=== PATIENT | female | born 1965 | race Caucasian/White ===

== ENCOUNTER 2017-12-14 16:47 | Observation (INO) | payer BC ==
--- NOTE | 2017-12-14 17:14 | C.PDOC ---
History Of Present Illness <Neli Egan - Last Filed: 12/14/17 19:00> <Severiano Pickering - Last Filed: 12/14/17 19:38> 52 y/o female present to ED for evaluation of subjective fever and chills that started today. Notes she was started on unknown antibiotics for UTI on 11/19 but had changed to Cipro on 11/29 because UTI symptoms did not resolve. Notes she also has nausea. Otherwise, denies vomiting, or diarrhea. (Neli Egan) History Per: Patient History/Exam Limitations: no limitations Onset/Duration Of Symptoms: Days Current Symptoms Are (Timing): Still Present Sick Contacts (Context): None Associated Symptoms: Fever, Chills, Nausea. denies: Vomiting, Diarrhea Ear Symptoms: Bilateral: None Recent travel outside of the [place]: No Additional History Per: Patient <Neli Egan - Last Filed: 12/14/17 19:00> <Severiano Pickering - Last Filed: 12/14/17 19:38> Time Seen by Provider: 12/14/17 17:01 Chief Complaint (Nursing): Fever Past Medical History Reviewed: Historical Data, Nursing Documentation, Vital Signs - Medical History PMH: Asthma, COPD Family History: States: Unknown Family Hx - Social History Hx Tobacco Use: No Hx Alcohol Use: No Hx Substance Use: No - Immunization History Hx Tetanus Toxoid Vaccination: No Hx Influenza Vaccination: No Hx Pneumococcal Vaccination: No <Neli Egan - Last Filed: 12/14/17 19:00> Vital Signs: Last Vital Signs Temp 101.9 F H 12/14/17 18:39 Pulse 82 12/14/17 19:01 Resp 16 12/14/17 19:01 BP 90/40 L 12/14/17 19:01 Pulse Ox 98 12/14/17 19:01 Review Of Systems Except As Marked, All Systems Reviewed And Found Negative. Constitutional: Positive for: Fever, Chills Cardiovascular: Negative for: Chest Pain Respiratory: Negative for: Shortness of Breath Gastrointestinal: Positive for: Nausea. Negative for: Vomiting, Abdominal Pain , Diarrhea, Constipation <Neli Egan - Last Filed: 12/14/17 19:00> Physical Exam - Physical Exam Appears: Non-toxic, No Acute Distress Skin: Normal Color, Warm, Dry Head: Atraumatic, Normacephalic Eye(s): bilateral: Normal Inspection Oral Mucosa: Moist Neck: Normal ROM, Supple Chest: Symmetrical Cardiovascular: Rhythm Regular, No Murmur Respiratory: Normal Breath Sounds, No Rales, No Rhonchi, No Wheezing Gastrointestinal/Abdominal: Soft, No Tenderness, No Guarding, No Rebound Back: No CVA Tenderness Extremity: Normal ROM, No Deformity Neurological/Psych: Oriented x3, Normal Speech <Neli Egan - Last Filed: 12/14/17 19:00> ED Course And Treatment - Laboratory Results Result Diagrams: 12/14/17 17:53 12/14/17 18:25 O2 Sat by Pulse Oximetry: 98 (RA) Pulse Ox Interpretation: Normal <Neli Egan - Last Filed: 12/14/17 19:00> - Laboratory Results Result Diagrams: 12/14/17 17:53 12/14/17 18:25 ECG: Interpreted By Me, Viewed By Me ECG Rhythm: Sinus Rhythm ECG Interpretation: Normal, No Acute Changes Interpretation Of ECG: NSR, normal tracings. Rate From EC <Severiano Pickering - Last Filed: 12/14/17 19:38> Progress - Data Reviewed Data Reviewed: Lab, Diagnostic imaging <Neli Egan - Last Filed: 12/14/17 19:00> <Severiano Pickering - Last Filed: 12/14/17 19:38> - Re-Evaluation Re-evaluation Note: 12/14/17 18:31 SBP 90. IVF IN PROGRESS. NO UO. LAB FINDINGS CONCERNING FOR BACTEREMIA. 12/14/17 19:00 D/W DR Akil LEIVA NUTRITION TEACHER WILL ADMIT. STATES TO ADMIT UNDER DR BOJORQUEZ (Neli Egan) Medical Decision Making <Neli Egan - Last Filed: 12/14/17 19:00> <Severiano Pickering - Last Filed: 12/14/17 19:38> Medical Decision Making: Plan: Blood work Urinalysis EKG/CXR Influenza AB Tylenol IV fluids (Neli Egan) Disposition Counseled Patient/Family Regarding: Studies Performed, Diagnosis - Disposition Disposition Time: 18:54 <Neli Egan - Last Filed: 12/14/17 19:00> <Severiano Pickering - Last Filed: 12/14/17 19:38> - Disposition Disposition: HOSPITALIZED Condition: SERIOUS - Clinical Impression Clinical Impression: Fever, Abnormal liver function test - Scribe Statement The provider has reviewed the documentation as recorded by the Scribe <Neli Egan - Last Filed: 12/14/17 19:00> <Severiano Pickering - Last Filed: 12/14/17 19:38> - Scribe Statement KP All medical record entries made by the Scribe were at my direction and personally dictated by me. I have reviewed the chart and agree that the record accurately reflects my personal performance of the history, physical exam, medical decision making, and the department course for this patient. I have also personally directed, reviewed, and agree with the discharge instructions and disposition. (Neli Egan)
[2017-12-14] MEDS ORDERED: Sodium Chloride 0.9% 2,000 ML ONE (17:28)
--- NOTE | 2017-12-14 17:28 | RAD ---
Date of service: 12/14/2017 HISTORY: fever COMPARISON: No prior. FINDINGS: LUNGS: Prominent lung markings in the mid and lower lungs. Correlate clinically for bronchitis PLEURA: No significant pleural effusion identified, no pneumothorax apparent. CARDIOVASCULAR: Normal. OSSEOUS STRUCTURES: No significant abnormalities. VISUALIZED UPPER ABDOMEN: Normal. OTHER FINDINGS: None. IMPRESSION: Prominent lung markings at the mid and lower lung. Correlate clinically for bronchitis.
[2017-12-14 17:49] LABS: VENOUS BLOOD GAS BASE EXCESS -6.8 mmol/L (0.0-2.0); VENOUS BLOOD GAS PCO2 31 mmHg (40-60); VENOUS BLOOD GAS PO2 35 mm/Hg (30-55); VENOUS BLOOD PH 7.36 (7.32-7.43)
[2017-12-14 17:50] LABS: SQUAMOUS EPITHIAL 1 /hpf (0-5); URINE BILIRUBIN NEGATIVE (NEGATIVE); URINE BLOOD NEGATIVE (NEGATIVE); URINE CLARITY Clear (Clear); URINE COLOR Yellow (YELLOW); URINE GLUCOSE (UA) NORMAL (Normal); URINE LEUKOCYTE ESTERASE TRACE Leu/uL (Negative); URINE PROTEIN NEGATIVE (NEGATIVE)
[2017-12-14] MEDS ORDERED: Potassium Chloride 20 mEq/15 ml LIQ UD PO STA (17:54)
[2017-12-14 17:57] LABS: BASO % 0.1 % (0.0-2.0); EOS # 0.1 K/uL (0.0-0.7); EOS % 0.6 % (0.0-4.0); HEMOGLOBIN 11.7 g/dL (11.0-16.0); LYMPH # 0.3 K/uL (1.0-4.3); LYMPH % 2.3 % (20.0-40.0); MEAN CELL VOLUME 87.2 fL (81.0-99.0); MEAN CORPUSCULAR HEMOGLOBIN 28.8 pg (27.0-31.0); MEAN CORPUSCULAR HGB CONC 33.1 g/dL (33.0-37.0); MEAN PLATELET VOLUME 8.7 fL (7.2-11.7); MONO # 0.2 K/uL (0.0-0.8); MONO % 1.6 % (0.0-10.0); NEUT # 12.9 K/uL (1.8-7.0); NEUT % 95.4 % (50.0-75.0); PLATELET COUNT 214 K/uL (130-400); RBC 4.07 Mil/uL (3.80-5.20); RED CELL DISTRIBUTION WIDTH 14.5 % (11.5-14.5); WHITE BLOOD COUNT 13.5 K/uL (4.8-10.8)
[2017-12-14] MEDS ORDERED: Potassium Chloride 20 mEq/15 ml LIQ UD ONE (18:06)
[2017-12-14 18:16] LABS: BANDS 1 % (0-2); LYMPHOCYTE 4 % (20-40); MONOCYTE 4 % (0-10); NEUTROPHIL 91 % (50-75); TOTAL CELLS COUNTED 100
[2017-12-14 18:17] LABS: PLATELET ESTIMATE NORMAL (NORMAL)
[2017-12-14 18:18] LABS: HYPOCHROMIC SLIGHT
[2017-12-14] MEDS ORDERED: Vancomycin 1 gm/NS 200 ml 1 GM/200 ML BAG IVPB STA (18:29)
[2017-12-14] MEDS ORDERED: Piperacill/Tazo 3.375gm in Dex 3.375 GM/50 ML BAG IVPB STA (18:29)
[2017-12-14 18:40] LABS: ALB/GLOB RATIO 1.2 (1.0-2.1); ALBUMIN 3.4 g/dL (3.5-5.0); ALT/SGPT 289 U/L (9-52); AST/SGOT 515 U/L (14-36); BLOOD UREA NITROGEN 14 mg/dL (7-17); CALCIUM 8.6 mg/dl (8.6-10.4); GFR AFRICAN-AMERICAN > 60; GFR NON-AFRICAN AMERICAN > 60
[2017-12-14] MEDS ORDERED: Piperacillin/Tazobact 3.375 gm 100 ML IVPB ONE (18:53)
[2017-12-14 20:04] LABS: INR 1.2; PROTHROMBIN TIME 13.6 SECONDS (9.7-12.2)
--- NOTE | 2017-12-14 21:40 | CP.PCM.HP ---
<Nneka Terrazas E - Last Filed: 12/14/17 22:51> History of Present Illness - History of Present Illness History of Present Illness: CC: Fever and chills HPI: Patient is 52 year old menopausal female with history of opioid abuse, who presents to the ED via ambulance with complaint of fever and chills. Patient states that she felt sudden fever and chills after while painting her deck and sitting under the hair dry. Patient states that she was placed on Cipro BID on November 29 for UTI after she was placed on an unknown antibiotics on November 19, which provided no relief. Prior to being placed on the Cipro, patient had symptoms of dysuria and increased urinary frequency for 2 days without associated symptoms of fever and chills. Currently, patient denies any symptoms of dysuria, urinary frequency, flank pain, abdominal/pelvic pain, hematuria, headache, chest pain, palpitations, SOB, cough, running nose. In addition, patient is enrolled in an outpatient nacrotics program, [facility], , please call to confirm daily dose of methadone 50mg PO daily. Code status: Full code\ Person of contact: SonJerald, PMD: Dr. Jacob (Located in [place]) PMHx: Childhood asthma PSHx: Gastric Bypass ( 2 years ago) FHx: Denies Medication: Methadone 50mg PO daily, symbicort prn, Cipro 500mg PO BID ( Started November 29) Allergies: Denies Social Hx: Lives with familym works at [employer]. Admits to tobacco use (> 20years, 4-5 cigarettes per day, quit 3 weeks ago), Opioid abuse (pills), and denies ETOH use. Present on Admission - Present on Admission Any Indicators Present on Admission: No Review of Systems - Constitutional Constitutional: Chills, Fever. absent: Excessive Sweating, Headache, Night Sweats, Weakness - EENT Eyes: absent: Blurred Vision, Change in Vision Nose/Mouth/Throat: absent: Nasal Congestion, Nasal Discharge, Sore Throat - Cardiovascular Cardiovascular: absent: Chest Pain, Diaphoresis, Dyspnea, Lightheadedness, Palpitations - Respiratory Respiratory: absent: Cough, Dyspnea, Dyspnea on Exertion, Wheezing - Gastrointestinal Gastrointestinal: absent: Abdominal Pain, Diarrhea, Hematochezia, Nausea, Vomiting - Genitourinary Genitourinary: absent: Dysuria, Flank Pain, Hematuria, Pyuria, Urinary Frequency - Reproductive: Female Reproductive:Female: Menopausal - Musculoskeletal Musculoskeletal: absent: Back Pain, Numbness, Tingling - Neurological Neurological: absent: Dizziness, Headaches, Tingling, Weakness - Psychiatric Psychiatric: absent: Anxiety - Endocrine Endocrine: absent: Fatigue, Palpitations Past Patient History - Past Social History Smoking Status: Light Smoker < 10 Cigarettes Daily - PULMONARY Hx Asthma: Yes Hx Chronic Obstructive Pulmonary Disease (COPD): Yes - PSYCHIATRIC Hx Substance Use: No Meds Allergies/Adverse Reactions: Allergies Allergy/AdvReac Type Severity Reaction Status Date / Time No Known Allergies Allergy Verified 12/14/17 16:58 Physical Exam - Constitutional Appears: No Acute Distress - Head Exam Head Exam: ATRAUMATIC, NORMAL INSPECTION - Eye Exam Eye Exam: EOMI, Normal appearance - ENT Exam ENT Exam: Mucous Membranes Moist - Respiratory Exam Respiratory Exam: Clear to Auscultation Bilateral, Wheezes, NORMAL BREATHING PATTERN. absent: Decreased Breath Sounds, Rhonchi - Cardiovascular Exam Cardiovascular Exam: REGULAR RHYTHM, +S1, +S2. absent: Diastolic murmur, Systolic Murmur - GI/Abdominal Exam GI & Abdominal Exam: Normal Bowel Sounds, Soft, Tenderness Additional comments: Epigastric tenderness Mild RUQ pain - Extremities Exam Extremities exam: Positive for: normal inspection. Negative for: calf tenderness, pedal edema - Back Exam Back exam: NORMAL INSPECTION. absent: CVA tenderness (L), CVA tenderness (R) - Neurological Exam Neurological exam: Alert, CN II-XII Intact, Oriented x3 - Psychiatric Exam Psychiatric exam: Normal Affect, Normal Mood - Skin Skin Exam: Normal Color Results - Vital Signs Recent Vital Signs: Last Vital Signs Temp 100.0 F H 12/14/17 21:00 Pulse 84 12/14/17 21:00 Resp 16 12/14/17 21:00 BP 94/60 L 12/14/17 21:00 Pulse Ox 95 12/14/17 21:00 - Labs Result Diagrams: 12/14/17 17:53 12/14/17 18:25 Labs: Laboratory Results - last 24 hr 12/14/17 12/14/17 12/14/17 17:22 17:45 17:53 WBC 13.5 H RBC 4.07 Hgb 11.7 Hct 35.5 MCV 87.2 MCH 28.8 MCHC 33.1 RDW 14.5 Plt Count 214 MPV 8.7 Neut % (Auto) 95.4 H Lymph % (Auto) 2.3 L [place] % (Auto) 1.6 Eos % (Auto) 0.6 Baso % (Auto) 0.1 Neut # (Auto) 12.9 H Lymph # (Auto) 0.3 L [place] # (Auto) 0.2 Eos # (Auto) 0.1 Baso # (Auto) 0.0 Neutrophils % (Manual) 91 H Band Neutrophils % 1 Lymphocytes % (Manual) 4 L Monocytes % (Manual) 4 Platelet Estimate Normal Hypochromasia (manual) Slight PT INR APTT pO2 35 VBG pH 7.36 VBG pCO2 31 L VBG HCO3 18.7 VBG Total CO2 18.5 L VBG O2 Sat (Calc) 76.6 H VBG Base Excess -6.8 L VBG Potassium 2.5 L* Sodium 144.0 Chloride 113.0 H Glucose 78 Lactate 1.9 Crit Value Called To Neli galvan md Crit Value Called By Gerald traylor horse riding coach or instructor Crit Value Read Back Y Blood Gas Notified Time 1756 Potassium Carbon Dioxide Anion Gap BUN Creatinine Est GFR ( Amer) Est GFR (Non-Af Amer) Random Glucose Calcium Phosphorus Magnesium Total Bilirubin AST ALT Alkaline Phosphatase Total Protein Albumin Globulin Albumin/Globulin Ratio Venous Blood Potassium 2.5 L* Urine Color Yellow Urine Clarity Clear Urine pH 6.0 Ur Specific [place] 1.014 Urine Protein Negative Urine Glucose (UA) Normal Urine Ketones Negative Urine Blood Negative Urine Nitrate Negative Urine Bilirubin Negative Urine Urobilinogen 4.0 H Ur Leukocyte Esterase Trace Urine WBC (Auto) < 1 Urine RBC (Auto) 2 Ur Squamous Epith Cells 1 Influenza Typ A,B (EIA) 12/14/17 12/14/17 12/14/17 18:00 18:25 18:57 WBC RBC Hgb Hct MCV MCH MCHC RDW Plt Count MPV Neut % (Auto) Lymph % (Auto) [place] % (Auto) Eos % (Auto) Baso % (Auto) Neut # (Auto) Lymph # (Auto) [place] # (Auto) Eos # (Auto) Baso # (Auto) Neutrophils % (Manual) Band Neutrophils % Lymphocytes % (Manual) Monocytes % (Manual) Platelet Estimate Hypochromasia (manual) PT INR APTT pO2 VBG pH VBG pCO2 VBG HCO3 VBG Total CO2 VBG O2 Sat (Calc) VBG Base Excess VBG Potassium Sodium 137 Chloride 102 Glucose Lactate Crit Value Called To Crit Value Called By Crit Value Read Back Blood Gas Notified Time Potassium 4.3 Carbon Dioxide 24 Anion Gap 15 BUN 14 Creatinine 0.6 L Est GFR ( Amer) > 60 Est GFR (Non-Af Amer) > 60 Random Glucose 107 H Calcium 8.6 Phosphorus 2.7 Magnesium 1.2 L Total Bilirubin 1.8 H AST 515 H ALT 289 H Alkaline Phosphatase 508 H Total Protein 6.2 L Albumin 3.4 L Globulin 2.8 Albumin/Globulin Ratio 1.2 Venous Blood Potassium Urine Color Urine Clarity Urine pH Ur Specific [place] Urine Protein Urine Glucose (UA) Urine Ketones Urine Blood Urine Nitrate Urine Bilirubin Urine Urobilinogen Ur Leukocyte Esterase Urine WBC (Auto) Urine RBC (Auto) Ur Squamous Epith Cells Influenza Typ A,B (EIA) Negative for flu a/b 12/14/17 19:49 WBC RBC Hgb Hct MCV MCH MCHC RDW Plt Count MPV Neut % (Auto) Lymph % (Auto) [place] % (Auto) Eos % (Auto) Baso % (Auto) Neut # (Auto) Lymph # (Auto) [place] # (Auto) Eos # (Auto) Baso # (Auto) Neutrophils % (Manual) Band Neutrophils % Lymphocytes % (Manual) Monocytes % (Manual) Platelet Estimate Hypochromasia (manual) PT 13.6 H INR 1.2 APTT 34 pO2 VBG pH VBG pCO2 VBG HCO3 VBG Total CO2 VBG O2 Sat (Calc) VBG Base Excess VBG Potassium Sodium Chloride Glucose Lactate Crit Value Called To Crit Value Called By Crit Value Read Back Blood Gas Notified Time Potassium Carbon Dioxide Anion Gap BUN Creatinine Est GFR ( Amer) Est GFR (Non-Af Amer) Random Glucose Calcium Phosphorus Magnesium Total Bilirubin AST ALT Alkaline Phosphatase Total Protein Albumin Globulin Albumin/Globulin Ratio Venous Blood Potassium Urine Color Urine Clarity Urine pH Ur Specific [place] Urine Protein Urine Glucose (UA) Urine Ketones Urine Blood Urine Nitrate Urine Bilirubin Urine Urobilinogen Ur Leukocyte Esterase Urine WBC (Auto) Urine RBC (Auto) Ur Squamous Epith Cells Influenza Typ A,B (EIA) Assessment & Plan (1) SIRS (systemic inflammatory response syndrome) Assessment and Plan: Tmax: 102 Chest X-ray: Prominent lung markings at the mid and lower lung. Correlate clinically for bronchitis UA: Negative F/u BC and UC Medication: * NS @ 100mls/hr * Rocephin 1gm IV daily * Motrin 400mg PO Q6H PRN for fever > 100.4 * Received Zosyn 3.375gm IV and Vanco 1gm IV once Status: Acute (2) Elevated WBCs Assessment and Plan: Tmax: 102 Chest X-ray: Prominent lung markings at the mid and lower lung. Correlate clinically for bronchitis UA: Negative F/u BC and UC Medication: * NS @ 100mls/hr * Rocephin 1gm IV daily Status: Acute (3) Elevated liver function tests Assessment and Plan: F/u hepatitis panel F/u CT abdomen IV and PO contrast Avoid hepatoxic drugs Status: Acute (4) Hypomagnesemia Assessment and Plan: Repleted with Mg Sulfate IV X2 F/u with am labs Status: Acute (5) Opioid abuse Assessment and Plan: Methadone 50mg PO daily ( Please confirm with outpatient NA programs, [facility], Status: Acute (6) Wheezing on exhalation Assessment and Plan: Duonebs 3ml INH RQ6H Status: Acute (7) Prophylactic measure Assessment and Plan: GI: Pepcid 20mg PO daily DVT: SCDs All management and plans discussed with Dr. Bravo Status: Acute <Jani Bravo P - Last Filed: 12/15/17 07:20> Results - Vital Signs Recent Vital Signs: Last Vital Signs Temp 98.1 F 12/15/17 00:00 Pulse 60 12/15/17 00:00 Resp 20 12/15/17 00:00 BP 98/59 L 12/15/17 00:00 Pulse Ox 97 12/15/17 00:00 - Labs Result Diagrams: 12/14/17 17:53 12/15/17 06:25 Labs: Laboratory Results - last 24 hr 12/14/17 12/14/17 12/14/17 17:22 17:45 17:53 WBC 13.5 H RBC 4.07 Hgb 11.7 Hct 35.5 MCV 87.2 MCH 28.8 MCHC 33.1 RDW 14.5 Plt Count 214 MPV 8.7 Neut % (Auto) 95.4 H Lymph % (Auto) 2.3 L [place] % (Auto) 1.6 Eos % (Auto) 0.6 Baso % (Auto) 0.1 Neut # (Auto) 12.9 H Lymph # (Auto) 0.3 L [place] # (Auto) 0.2 Eos # (Auto) 0.1 Baso # (Auto) 0.0 Neutrophils % (Manual) 91 H Band Neutrophils % 1 Lymphocytes % (Manual) 4 L Monocytes % (Manual) 4 Platelet Estimate Normal Hypochromasia (manual) Slight PT INR APTT pO2 35 VBG pH 7.36 VBG pCO2 31 L VBG HCO3 18.7 VBG Total CO2 18.5 L VBG O2 Sat (Calc) 76.6 H VBG Base Excess -6.8 L VBG Potassium 2.5 L* Sodium 144.0 Chloride 113.0 H Glucose 78 Lactate 1.9 Crit Value Called To Neli galvan md Crit Value Called By Gerald traylor horse riding coach or instructor Crit Value Read Back Y Blood Gas Notified Time 1751 Potassium Carbon Dioxide Anion Gap BUN Creatinine Est GFR ( Amer) Est GFR (Non-Af Amer) Random Glucose Calcium Phosphorus Magnesium Total Bilirubin AST ALT Alkaline Phosphatase Total Protein Albumin Globulin Albumin/Globulin Ratio Venous Blood Potassium 2.5 L* Urine Color Yellow Urine Clarity Clear Urine pH 6.0 Ur Specific [place] 1.014 Urine Protein Negative Urine Glucose (UA) Normal Urine Ketones Negative Urine Blood Negative Urine Nitrate Negative Urine Bilirubin Negative Urine Urobilinogen 4.0 H Ur Leukocyte Esterase Trace Urine WBC (Auto) < 1 Urine RBC (Auto) 2 Ur Squamous Epith Cells 1 Influenza Typ A,B (EIA) 12/14/17 12/14/17 12/14/17 18:00 18:25 18:57 WBC RBC Hgb Hct MCV MCH MCHC RDW Plt Count MPV Neut % (Auto) Lymph % (Auto) [place] % (Auto) Eos % (Auto) Baso % (Auto) Neut # (Auto) Lymph # (Auto) [place] # (Auto) Eos # (Auto) Baso # (Auto) Neutrophils % (Manual) Band Neutrophils % Lymphocytes % (Manual) Monocytes % (Manual) Platelet Estimate Hypochromasia (manual) PT INR APTT pO2 VBG pH VBG pCO2 VBG HCO3 VBG Total CO2 VBG O2 Sat (Calc) VBG Base Excess VBG Potassium Sodium 137 Chloride 102 Glucose Lactate Crit Value Called To Crit Value Called By Crit Value Read Back Blood Gas Notified Time Potassium 4.3 Carbon Dioxide 24 Anion Gap 15 BUN 14 Creatinine 0.6 L Est GFR ( Amer) > 60 Est GFR (Non-Af Amer) > 60 Random Glucose 107 H Calcium 8.6 Phosphorus 2.7 Magnesium 1.2 L Total Bilirubin 1.8 H AST 515 H ALT 289 H Alkaline Phosphatase 508 H Total Protein 6.2 L Albumin 3.4 L Globulin 2.8 Albumin/Globulin Ratio 1.2 Venous Blood Potassium Urine Color Urine Clarity Urine pH Ur Specific [place] Urine Protein Urine Glucose (UA) Urine Ketones Urine Blood Urine Nitrate Urine Bilirubin Urine Urobilinogen Ur Leukocyte Esterase Urine WBC (Auto) Urine RBC (Auto) Ur Squamous Epith Cells Influenza Typ A,B (EIA) Negative for flu a/b 12/14/17 12/15/17 19:49 06:25 WBC RBC Hgb Hct MCV MCH MCHC RDW Plt Count MPV Neut % (Auto) Lymph % (Auto) [place] % (Auto) Eos % (Auto) Baso % (Auto) Neut # (Auto) Lymph # (Auto) [place] # (Auto) Eos # (Auto) Baso # (Auto) Neutrophils % (Manual) Band Neutrophils % Lymphocytes % (Manual) Monocytes % (Manual) Platelet Estimate Hypochromasia (manual) PT 13.6 H INR 1.2 APTT 34 pO2 VBG pH VBG pCO2 VBG HCO3 VBG Total CO2 VBG O2 Sat (Calc) VBG Base Excess VBG Potassium Sodium 140 Chloride 109 H Glucose Lactate Crit Value Called To Crit Value Called By Crit Value Read Back Blood Gas Notified Time Potassium 4.4 Carbon Dioxide 24 Anion Gap 12 BUN 11 Creatinine 0.6 L Est GFR ( Amer) > 60 Est GFR (Non-Af Amer) > 60 Random Glucose 98 Calcium 8.4 L Phosphorus 3.6 Magnesium 2.2 Total Bilirubin 3.5 H AST 238 H D ALT 221 H D Alkaline Phosphatase 371 H D Total Protein 5.4 L Albumin 2.9 L Globulin 2.5 Albumin/Globulin Ratio 1.2 Venous Blood Potassium Urine Color Urine Clarity Urine pH Ur Specific [place] Urine Protein Urine Glucose (UA) Urine Ketones Urine Blood Urine Nitrate Urine Bilirubin Urine Urobilinogen Ur Leukocyte Esterase Urine WBC (Auto) Urine RBC (Auto) Ur Squamous Epith Cells Influenza Typ A,B (EIA) Attending/Attestation - Attestation I have personally seen and examined this patient.: Yes I have fully participated in the care of the patient.: Yes I have reviewed all pertinent clinical information: Yes Notes (Text): 12/15/17 07:16 Transaminitis, with fever, recently being on cipro could have caused transaminitis and fever could have been co incident, other w/u negative, h/o copd, asthma, recently stopped smoking 3wks back, on maintainence methadone 50mg daily from [facility], which will be confirmed, imaging ordered for the chest/abd/pelvis, hepatitis panel. H/o gastri bypass and tummy tuck.
[2017-12-14] MEDS: Magnesium Sulfate 1 gm in D5W 1 GM/100 ML BAG IVPB SCH ×2 (22:16→23:00)
[2017-12-14] MEDS: Sodium Chloride 0.9% 1,000 ML IV SCH (22:17)
[2017-12-15 00:18] VITALS: RESP 20
[2017-12-15] MEDS: Albuterol-Ipratrop 3 mg / 0.5 (3 ml) UD INH SCH ×3 (01:05→14:00)
[2017-12-15 06:54] LABS: ALB/GLOB RATIO 1.2 (1.0-2.1); ALBUMIN 2.9 g/dL (3.5-5.0); ALT/SGPT 221 U/L (9-52); AST/SGOT 238 U/L (14-36); BLOOD UREA NITROGEN 11 mg/dL (7-17); CALCIUM 8.4 mg/dl (8.6-10.4); GFR AFRICAN-AMERICAN > 60; GFR NON-AFRICAN AMERICAN > 60
[2017-12-15 07:26] LABS: BASO % 0.2 % (0.0-2.0); EOS # 0.1 K/uL (0.0-0.7); EOS % 0.6 % (0.0-4.0); HEMOGLOBIN 10.8 g/dL (11.0-16.0); LYMPH # 0.7 K/uL (1.0-4.3); LYMPH % 4.5 % (20.0-40.0); MEAN CELL VOLUME 88.8 fL (81.0-99.0); MEAN CORPUSCULAR HEMOGLOBIN 29.7 pg (27.0-31.0); MEAN CORPUSCULAR HGB CONC 33.5 g/dL (33.0-37.0); MEAN PLATELET VOLUME 9.3 fL (7.2-11.7); MONO # 0.6 K/uL (0.0-0.8); MONO % 3.6 % (0.0-10.0); NEUT % 91.1 % (50.0-75.0); PLATELET COUNT 196 K/uL (130-400); RBC 3.62 Mil/uL (3.80-5.20); RED CELL DISTRIBUTION WIDTH 14.4 % (11.5-14.5); WHITE BLOOD COUNT 16.5 K/uL (4.8-10.8)
--- NOTE | 2017-12-15 07:58 | CP.PCM.PN ---
<Yaneth Ovalle - Last Filed: 12/15/17 19:57> Subjective - Date & Time of Evaluation Date of Evaluation: 12/15/17 Time of Evaluation: 09:00 - Subjective Subjective: PGY-1 Yaneth Ovalle D.O. Medicine Progress note for Dr. Regalado service : Patient seen and examined. This morning, the patient is sitting comfortably in her bed. She is complaining of chills and overall not feeling well. She initially states she wants to leave the hospital and follow-up as an outpatient. It was explained to her that her abnormal lab results regarding her liver should be worked up as an inpatient. The patient agreed to stay. The patient was also asking for her methadone, since she has been receiving it at an outpatient clinic. [facility] ([phone]) was contacted, and they confirmed the patients dose of methadone 50 mg daily- this was resumed. The patient states that she recently had blood work done at her PCP, Dr. Jacob, in [facility]. We will contact her office to obtain results. Objective - Vital Signs/Intake and Output Vital Signs (last 24 hours): Temp Pulse Resp BP Pulse Ox 98.1 F 60 20 115/62 98 12/15/17 07:00 12/15/17 07:00 12/15/17 07:00 12/15/17 07:00 12/15/17 07:00 Intake and Output: 12/15/17 12/15/17 06:59 18:59 Intake Total 400 1100 Output Total 100 Balance 300 1100 - Medications Medications: Current Medications Albuterol/Ipratropium (Duoneb 3 Mg/0.5 Mg (3 Ml) Ud) 3 ml INH RQ6 MOUNIKA Last Admin: 12/15/17 01:05 Dose: Not Given Famotidine (Pepcid) 20 mg PO DAILY MOUNIKA Ceftriaxone Sodium (Rocephin Iv 1 Gm Duplex) 50 mls @ 100 mls/hr IVPB DAILY MOUNIKA PRN Reason: Protocol Sodium Chloride (Sodium Chloride 0.9%) 1,000 mls @ 100 mls/hr IV .Q10H MOUNIKA Last Admin: 12/14/17 22:17 Dose: 100 mls/hr Ibuprofen (Motrin Tab) 400 mg PO Q6H PRN PRN Reason: Fever >100.4 F Pneumococcal Polyvalent Vaccine (Pneumovax 23 Vaccine) 0.5 ml IM .ONCE ONE Stop: 12/16/17 10:01 - Labs Labs: 12/15/17 06:25 12/15/17 06:25 PT 13.6 SECONDS (9.7-12.2) H 12/14/17 19:49 INR 1.2 12/14/17 19:49 APTT 34 SECONDS (21-34) 12/14/17 19:49 - Constitutional Appears: Well - Head Exam Head Exam: ATRAUMATIC, NORMAL INSPECTION, NORMOCEPHALIC - Eye Exam Eye Exam: EOMI, Normal appearance - ENT Exam ENT Exam: Mucous Membranes Moist, Normal Exam - Neck Exam Neck Exam: Full ROM, Normal Inspection - Respiratory Exam Respiratory Exam: Clear to Ausculation Bilateral, NORMAL BREATHING PATTERN - Cardiovascular Exam Cardiovascular Exam: REGULAR RHYTHM - GI/Abdominal Exam GI & Abdominal Exam: Soft, Normal Bowel Sounds - Rectal Exam Rectal Exam: Deferred - Extremities Exam Extremities Exam: Full ROM, Normal Inspection - Back Exam Back Exam: Full ROM, NORMAL INSPECTION - Neurological Exam Neurological Exam: Alert, Awake, Oriented x3 - Psychiatric Exam Psychiatric exam: Anxious - Skin Skin Exam: Intact, Normal Color, Warm Assessment and Plan - Assessment and Plan (Free Text) Assessment: Patient is a 52 yo female with a PMH of opioid use disorder, HCV ( treated in 2016), gastric bypass, and COPD who presented to the ED via ambulance with fevers and chills x1 day. She has been on antibiotics for UTI since 11/19 (first unknown medication, then cipro). She currently denies urinary symptoms. Upon admission, she was found to have elevated transaminases, alkaline phosphatase, and bilirubin. CXR indicates possible bronchitis with middle and lower lung markings. Labs are concerning for possible obstruction and /or cholycystitis and should be further evaluated. Plan: Hyperbilirubinemia, acute - Will attempt to obtain outpatient labs from earlier this month - GI consult - CT A/P IMPRESSION: Scattered nodular and reticular opacities in the lungs more prominent in the upper lobes right more than left. Findings are nonspecific and may represent sequela of prior infection or inflammatory process such as sarcoidosis or prior multifocal pneumonia. The possibility of acute/active infectious process or neoplasm is less likely. Mild emphysematous changes. [id number] intrahepatic biliary ductal dilatation and mildly dilated CBD. The possibility of choledocholithiasis is not totally excluded. If clinically warranted further assessment by MRCP is suggested. Distended gallbladder demonstrate diffuse wall thickening. Trace pericholecystic fluid is also noted. Correlate clinically for cholecystitis. - Abdominal u/s pending Transaminitis, acute - Pt has hx of HCV, treatment in 2016 - Will attempt to obtain outpatient labs from earlier this month - GI consult - Abdominal u/s pending - HIV pending - HCV PCR pending - Outpatient colonoscopy SIRS, improving - WBC elevated- 11.7 - Afebrile > 24 hrs - Normal sinus rhythm - Respiratory rate wnl - CXR- middle and lower lobe lung markings, correlate clinically for bronchitis (pt is asymptomatic) - Urinary Cx- preliminary negative - Blood Cx pending - Zosyn 3.375 g IV q6hrs - Motrin 400 mg q6hrs prn fever Opioid use disorder, chronic - Outpatient methadone clinic [facility] [phone], dosage confirmed - Methadone 50 mg PO daily COPD, stable - Pt with expiratory wheezing upon admission, resolved - Pt reports quitting smoking ~3 wks ago - CXR- middle and lower lobe lung markings, correlate clinically for bronchitis - Duoneb q6hrs prn for shortness of breath IVF: NS @ 100 mL/hr Code status: full code VTE Ppx: ambulatory, VTE ppx not indicated GI Ppx: Pecid 20 mg PO daily <Remington Luz - Last Filed: 12/16/17 12:31> Objective - Vital Signs/Intake and Output Vital Signs (last 24 hours): Temp Pulse Resp BP Pulse Ox 98.4 F 54 L 20 122/67 95 12/16/17 07:00 12/16/17 07:00 12/16/17 07:00 12/16/17 07:00 12/16/17 07:00 Intake and Output: 12/16/17 12/16/17 06:59 18:59 Intake Total 2039 Balance 2039 - Medications Medications: Current Medications Albuterol/Ipratropium (Duoneb 3 Mg/0.5 Mg (3 Ml) Ud) 3 ml INH RQ6 PRN PRN Reason: Shortness of Breath Famotidine (Pepcid) 20 mg PO DAILY MOUNIKA Last Admin: 12/16/17 10:06 Dose: 20 mg Sodium Chloride (Sodium Chloride 0.9%) 1,000 mls @ 100 mls/hr IV .Q10H MOUNIKA Last Admin: 12/16/17 03:45 Dose: 100 mls/hr Piperacillin Sod/Tazobactam Sod (Zosyn 3.375 Gm Iv Premix) 3.375 gm in 50 mls @ 100 mls/hr IVPB Q6H MOUNIKA PRN Reason: Protocol Last Admin: 12/16/17 05:34 Dose: 100 mls/hr Ibuprofen (Motrin Tab) 400 mg PO Q6H PRN PRN Reason: Fever >100.4 F Methadone HCl (Methadone) 50 mg PO DAILY MOUNIKA Last Admin: 12/16/17 10:06 Dose: 50 mg - Labs Labs: 12/16/17 06:10 12/16/17 06:10 PT 13.6 SECONDS (9.7-12.2) H 12/14/17 19:49 INR 1.2 12/14/17 19:49 APTT 34 SECONDS (21-34) 12/14/17 19:49 Attending/Attestation - Attestation I have personally seen and examined this patient.: Yes I have fully participated in the care of the patient.: Yes I have reviewed all pertinent clinical information, including history, physical exam and plan: Yes Notes (Text): Seen and examined by me. patient wanted to leave the hospital.after long discussion about her fever and elevated liver enzymes she decided to stay and get treatment She has history of substance abuse on Methadone. Her Temp max 102F Denies nausea,no vomiting,no abdominal or chest pain 1.Fever r/o sepsis 2.Multifocal pneumonia,r/o sarcoidosis-I will get DR South to see her 3.Transaminitis/Elevated bilirubin CT scan with dilated cbc and intrahepatic ducts Follow hepatic disease work up recommended by GI 4COPD-stable 5.Opiod use on methadone continue Zosyn which will cover her pneumonia and possible GI infection causing fever follow cultures Assessment and the plan discussed with the resident and I agree with the documentation
[2017-12-15] MEDS: Sodium Chloride 0.9% 1,000 ML IV SCH ×2 (08:13→22:07)
[2017-12-15 08:31] LABS: HEPATITIS B SURFACE AG Negative (NEGATIVE)
[2017-12-15 08:40] LABS: HEPATITIS A IGM NEGATIVE (NEGATIVE); HEPATITIS B CORE AB NEGATIVE (NEGATIVE)
[2017-12-15 08:54] LABS: LYMPHOCYTE 4 % (20-40); MONOCYTE 3 % (0-10); NEUTROPHIL 93 % (50-75); PLATELET ESTIMATE NORMAL (NORMAL); TOTAL CELLS COUNTED 100
[2017-12-15 08:55] LABS: ANISOCYTOSIS SLIGHT; HYPOCHROMIC SLIGHT; POIKILOCYTOSIS SLIGHT
[2017-12-15] MEDS ORDERED: Iohexol 240 (50 ml) PO ONE (09:15)
[2017-12-15 09:56] LABS: HEPATITIS C ANTIBODY REACTIVE (NEGATIVE)
[2017-12-15] MEDS ORDERED: cefTRIAXone IV 1 gm in Dextros 50 ML IVPB SCH (10:00)
--- NOTE | 2017-12-15 11:23 | CP.PCM.CON ---
<Juan F Quintanilla - Last Filed: 12/15/17 15:24> History of Present Illness - History of Present Illness History of Present Illness: PGY-4 GI Fellow Consult Note Mrs. Rice is a 52 yo WF with h/o asthma, opiod abuse (on methadone) presenting with complaint of fevers and chills found to have abnormal Liver tests for which GI is consulted. She states on 12/15 she was working outside when she felt feverish with chills and some shakes prompting her to call ambulance to bring to ED for evaluation. She states over the last several day she was in her usual state of health, though she states that she was completely an antibiotic course of ciprofloxacin for UTI. Furthermore, she states that just prior to starting the ciprofloxacin , she was completing course of antibiotic (unknown name) for an unknown reason. Since admission, she had supportive care with IVF as well as broad spectrum Abx of Vancomycin, Ceftriaxone and Pip/Tazo. CXR revealed possible bronchitis and pt states she feels symptomatically better since admission. However, liver tests returned with AST 515, ALT 289, AP 508, Bili 1.8 prompting viral hep screening and ordering of CT Scan w/IV and PO contrasts. Hepatitis A and B serologies were negative but Hep C Ab was positive. Patient states that she might have been told she has "low liver numbers" in the past but otherwise did not know anything about Hep C. She states that for her opiod abuse that she always took pills orally denying and IV drug use. As far as sexual practices and questioned about barrier protection, she states that she is always "careful. " She denies any tremor, rash, yellowing of skin, EtOH use, melena nor hematochezia. 12 point ROS negative other than stated above MHx: See above SurgHx: Gastric bypass. States had EGD and CSPY done at time of bypass and was told unremarkable Meds: Reviewed in MAR FamHx: Denies fam h/o GI/liver problems SocHx: 05/22 ppd smoker, + opioids, denied EtOH All: NKDA Past Patient History - Past Social History Smoking Status: Light Smoker < 10 Cigarettes Daily - PULMONARY Hx Asthma: Yes Hx Chronic Obstructive Pulmonary Disease (COPD): Yes - PSYCHIATRIC Hx Substance Use: No Meds Allergies/Adverse Reactions: Allergies Allergy/AdvReac Type Severity Reaction Status Date / Time No Known Allergies Allergy Verified 12/14/17 16:58 - Medications Medications: Current Medications Albuterol/Ipratropium (Duoneb 3 Mg/0.5 Mg (3 Ml) Ud) 3 ml INH RQ6 [facility] Last Admin: 12/15/17 01:05 Dose: Not Given Famotidine (Pepcid) 20 mg PO DAILY [facility] Last Admin: 12/15/17 10:06 Dose: 20 mg Sodium Chloride (Sodium Chloride 0.9%) 1,000 mls @ 100 mls/hr IV .Q10H [facility] Last Admin: 12/14/17 22:17 Dose: 100 mls/hr Piperacillin Sod/Tazobactam Sod (Zosyn 3.375 Gm Iv Premix) 3.375 gm in 50 mls @ 100 mls/hr IVPB Q6H [facility] PRN Reason: Protocol Ibuprofen (Motrin Tab) 400 mg PO Q6H PRN PRN Reason: Fever >100.4 F Methadone HCl (Methadone) 50 mg PO DAILY [facility] Pneumococcal Polyvalent Vaccine (Pneumovax 23 Vaccine) 0.5 ml IM .ONCE ONE Stop: 12/16/17 10:01 Physical Exam - Constitutional Appears: Well, Non-toxic - Head Exam Head Exam: ATRAUMATIC, NORMAL INSPECTION - Eye Exam Eye Exam: EOMI. absent: Conjunctival injection, Scleral icterus - ENT Exam ENT Exam: Mucous Membranes Moist, Normal External Ear Exam - Respiratory Exam Respiratory Exam: Clear to Auscultation Bilateral, NORMAL BREATHING PATTERN. absent: Accessory Muscle Use, Chest Wall Tenderness, Prolonged Expiratory Phase - Cardiovascular Exam Cardiovascular Exam: REGULAR RHYTHM. absent: Bradycardia, Tachycardia, Irregular Rhythm, Systolic Murmur - GI/Abdominal Exam GI & Abdominal Exam: Normal Bowel Sounds, Soft. absent: Bruit, Diminished Bowel Sounds, Distended, Firm, Guarding, Hernia, Hyperactive Bowel Sounds, Hypoactive Bowel Sounds, Mass, Organomegaly, Pulsatile Mass, Rebound, Rigid, Tenderness - Rectal Exam Rectal Exam: Deferred - Extremities Exam Extremities exam: Positive for: normal inspection. Negative for: pedal edema - Neurological Exam Neurological exam: Alert, CN II-XII Intact, Oriented x3 Additional comments: Base Wad Operator Adjuster asterixis - Psychiatric Exam Psychiatric exam: Normal Affect, Normal Mood - Skin Skin Exam: Normal Color, Warm Results - Vital Signs Recent Vital Signs: Last Vital Signs Temp 98.1 F 12/15/17 07:00 Pulse 60 12/15/17 07:00 Resp 20 12/15/17 07:00 BP 115/62 12/15/17 07:00 Pulse Ox 98 12/15/17 10:09 - Labs Result Diagrams: 12/15/17 06:25 12/15/17 06:25 Labs: Laboratory Results - last 24 hr 12/14/17 12/14/17 12/14/17 17:22 17:45 17:53 WBC 13.5 H RBC 4.07 Hgb 11.7 Hct 35.5 MCV 87.2 MCH 28.8 MCHC 33.1 RDW 14.5 Plt Count 214 MPV 8.7 Neut % (Auto) 95.4 H Lymph % (Auto) 2.3 L Teller % (Auto) 1.6 Eos % (Auto) 0.6 Baso % (Auto) 0.1 Neut # (Auto) 12.9 H Lymph # (Auto) 0.3 L Teller # (Auto) 0.2 Eos # (Auto) 0.1 Baso # (Auto) 0.0 Neutrophils % (Manual) 91 H Band Neutrophils % 1 Lymphocytes % (Manual) 4 L Monocytes % (Manual) 4 Platelet Estimate Normal Hypochromasia (manual) Slight Poikilocytosis (manual Anisocytosis (manual) PT INR APTT pO2 35 VBG pH 7.36 VBG pCO2 31 L VBG HCO3 18.7 VBG Total CO2 18.5 L VBG O2 Sat (Calc) 76.6 H VBG Base Excess -6.8 L VBG Potassium 2.5 L* Sodium 144.0 Chloride 113.0 H Glucose 78 Lactate 1.9 Crit Value Called To Neli galvan md Crit Value Called By Gerald traylor oil truck driver Crit Value Read Back Y Blood Gas Notified Time 1755 Potassium Carbon Dioxide Anion Gap BUN Creatinine Est GFR ( Amer) Est GFR (Non-Af Amer) Random Glucose Calcium Phosphorus Magnesium Total Bilirubin AST ALT Alkaline Phosphatase Total Protein Albumin Globulin Albumin/Globulin Ratio Venous Blood Potassium 2.5 L* Urine Color Yellow Urine Clarity Clear Urine pH 6.0 Ur Specific [place] 1.014 Urine Protein Negative Urine Glucose (UA) Normal Urine Ketones Negative Urine Blood Negative Urine Nitrate Negative Urine Bilirubin Negative Urine Urobilinogen 4.0 H Ur Leukocyte Esterase Trace Urine WBC (Auto) < 1 Urine RBC (Auto) 2 Ur Squamous Epith Cells 1 Urine HCG, Qual Hepatitis A IgM Ab Hep Bs Antigen Hep B Core IgM Ab Hepatitis C Antibody Influenza Typ A,B (EIA) 12/14/17 12/14/17 12/14/17 18:00 18:25 18:57 WBC RBC Hgb Hct MCV MCH MCHC RDW Plt Count MPV Neut % (Auto) Lymph % (Auto) Teller % (Auto) Eos % (Auto) Baso % (Auto) Neut # (Auto) Lymph # (Auto) Teller # (Auto) Eos # (Auto) Baso # (Auto) Neutrophils % (Manual) Band Neutrophils % Lymphocytes % (Manual) Monocytes % (Manual) Platelet Estimate Hypochromasia (manual) Poikilocytosis (manual Anisocytosis (manual) PT INR APTT pO2 VBG pH VBG pCO2 VBG HCO3 VBG Total CO2 VBG O2 Sat (Calc) VBG Base Excess VBG Potassium Sodium 137 Chloride 102 Glucose Lactate Crit Value Called To Crit Value Called By Crit Value Read Back Blood Gas Notified Time Potassium 4.3 Carbon Dioxide 24 Anion Gap 15 BUN 14 Creatinine 0.6 L Est GFR ( Amer) > 60 Est GFR (Non-Af Amer) > 60 Random Glucose 107 H Calcium 8.6 Phosphorus 2.7 Magnesium 1.2 L Total Bilirubin 1.8 H AST 515 H ALT 289 H Alkaline Phosphatase 508 H Total Protein 6.2 L Albumin 3.4 L Globulin 2.8 Albumin/Globulin Ratio 1.2 Venous Blood Potassium Urine Color Urine Clarity Urine pH Ur Specific [place] Urine Protein Urine Glucose (UA) Urine Ketones Urine Blood Urine Nitrate Urine Bilirubin Urine Urobilinogen Ur Leukocyte Esterase Urine WBC (Auto) Urine RBC (Auto) Ur Squamous Epith Cells Urine HCG, Qual Hepatitis A IgM Ab Hep Bs Antigen Hep B Core IgM Ab Hepatitis C Antibody Influenza Typ A,B (EIA) Negative for flu a/b 12/14/17 12/15/17 12/15/17 19:49 06:25 06:25 WBC 16.5 H RBC 3.62 L Hgb 10.8 L Hct 32.1 L MCV 88.8 MCH 29.7 MCHC 33.5 RDW 14.4 Plt Count 196 MPV 9.3 Neut % (Auto) 91.1 H Lymph % (Auto) 4.5 L Teller % (Auto) 3.6 Eos % (Auto) 0.6 Baso % (Auto) 0.2 Neut # (Auto) 15.0 H Lymph # (Auto) 0.7 L Teller # (Auto) 0.6 Eos # (Auto) 0.1 Baso # (Auto) 0.0 Neutrophils % (Manual) 93 H Band Neutrophils % Lymphocytes % (Manual) 4 L Monocytes % (Manual) 3 Platelet Estimate Normal Hypochromasia (manual) Slight Poikilocytosis (manual Slight Anisocytosis (manual) Slight PT 13.6 H INR 1.2 APTT 34 pO2 VBG pH VBG pCO2 VBG HCO3 VBG Total CO2 VBG O2 Sat (Calc) VBG Base Excess VBG Potassium Sodium Chloride Glucose Lactate Crit Value Called To Crit Value Called By Crit Value Read Back Blood Gas Notified Time Potassium Carbon Dioxide Anion Gap BUN Creatinine Est GFR ( Amer) Est GFR (Non-Af Amer) Random Glucose Calcium Phosphorus Magnesium Total Bilirubin AST ALT Alkaline Phosphatase Total Protein Albumin Globulin Albumin/Globulin Ratio Venous Blood Potassium Urine Color Urine Clarity Urine pH Ur Specific [place] Urine Protein Urine Glucose (UA) Urine Ketones Urine Blood Urine Nitrate Urine Bilirubin Urine Urobilinogen Ur Leukocyte Esterase Urine WBC (Auto) Urine RBC (Auto) Ur Squamous Epith Cells Urine HCG, Qual Hepatitis A IgM Ab Negative Hep Bs Antigen Negative Hep B Core IgM Ab Negative Hepatitis C Antibody Reactive Influenza Typ A,B (EIA) 12/15/17 12/15/17 06:25 10:11 WBC RBC Hgb Hct MCV MCH MCHC RDW Plt Count MPV Neut % (Auto) Lymph % (Auto) Teller % (Auto) Eos % (Auto) Baso % (Auto) Neut # (Auto) Lymph # (Auto) Teller # (Auto) Eos # (Auto) Baso # (Auto) Neutrophils % (Manual) Band Neutrophils % Lymphocytes % (Manual) Monocytes % (Manual) Platelet Estimate Hypochromasia (manual) Poikilocytosis (manual Anisocytosis (manual) PT INR APTT pO2 VBG pH VBG pCO2 VBG HCO3 VBG Total CO2 VBG O2 Sat (Calc) VBG Base Excess VBG Potassium Sodium 140 Chloride 109 H Glucose Lactate Crit Value Called To Crit Value Called By Crit Value Read Back Blood Gas Notified Time Potassium 4.4 Carbon Dioxide 24 Anion Gap 12 BUN 11 Creatinine 0.6 L Est GFR ( Amer) > 60 Est GFR (Non-Af Amer) > 60 Random Glucose 98 Calcium 8.4 L Phosphorus 3.6 Magnesium 2.2 Total Bilirubin 3.5 H AST 238 H D ALT 221 H D Alkaline Phosphatase 371 H D Total Protein 5.4 L Albumin 2.9 L Globulin 2.5 Albumin/Globulin Ratio 1.2 Venous Blood Potassium Urine Color Urine Clarity Urine pH Ur Specific [place] Urine Protein Urine Glucose (UA) Urine Ketones Urine Blood Urine Nitrate Urine Bilirubin Urine Urobilinogen Ur Leukocyte Esterase Urine WBC (Auto) Urine RBC (Auto) Ur Squamous Epith Cells Urine HCG, Qual Negative Hepatitis A IgM Ab Hep Bs Antigen Hep B Core IgM Ab Hepatitis C Antibody Influenza Typ A,B (EIA) Assessment & Plan - Assessment and Plan (Free Text) Assessment: 52 yo WF with h/o opioid abuse presenting with fevers/chills found to have abnormal liver test. # Abnormal Liver Tests: R factor 1.71 on admission suggestive of cholestatic pattern with ALT 289, AST 515, AP 208, Bili 1.8. All values improved today other than Bili which matthew to 3.5. Concern for drug induced liver injury given multiple recent antibiotic use; however, interestingly was found to be HCV Antibody + which pt did not know about and denies any obvious known exposures. # HCV Ab Positive # Colon CA Screen: Reportedly CSPY done in 2016 Plan: - Agree with obtaining abdominal imaging to further evaluate - Ordered RUQ US - Checking HIV and HCV PCR Qual - Further liver disease w/u with ASMA, SANTOSH, AMA, Anti-LK, Ceruloplasmin, Fe Studies, IgG, Alpha-1 - Counseled pt to f/u with PCP - Trend CMP, INR Thank you for the consult. Pt seen and examined with Dr. Hollis. <Maximo Hollis Y - Last Filed: 12/15/17 15:38> Meds - Medications Medications: Current Medications Albuterol/Ipratropium (Duoneb 3 Mg/0.5 Mg (3 Ml) Ud) 3 ml INH RQ6 [facility] Last Admin: 12/15/17 01:05 Dose: Not Given Famotidine (Pepcid) 20 mg PO DAILY [facility] Last Admin: 12/15/17 10:06 Dose: 20 mg Sodium Chloride (Sodium Chloride 0.9%) 1,000 mls @ 100 mls/hr IV .Q10H [facility] Last Admin: 12/15/17 08:13 Dose: 100 mls/hr Piperacillin Sod/Tazobactam Sod (Zosyn 3.375 Gm Iv Premix) 3.375 gm in 50 mls @ 100 mls/hr IVPB Q6H [facility] PRN Reason: Protocol Last Admin: 12/15/17 11:24 Dose: 100 mls/hr Ibuprofen (Motrin Tab) 400 mg PO Q6H PRN PRN Reason: Fever >100.4 F Methadone HCl (Methadone) 50 mg PO DAILY [facility] Pneumococcal Polyvalent Vaccine (Pneumovax 23 Vaccine) 0.5 ml IM .ONCE ONE Stop: 12/16/17 10:01 Results - Vital Signs Recent Vital Signs: Last Vital Signs Temp 98.1 F 12/15/17 07:00 Pulse 60 12/15/17 07:00 Resp 20 12/15/17 07:00 BP 115/62 12/15/17 07:00 Pulse Ox 98 12/15/17 14:43 - Labs Result Diagrams: 12/15/17 06:25 12/15/17 06:25 Labs: Laboratory Results - last 24 hr 12/14/17 12/14/17 12/14/17 17:22 17:45 17:53 WBC 13.5 H RBC 4.07 Hgb 11.7 Hct 35.5 MCV 87.2 MCH 28.8 MCHC 33.1 RDW 14.5 Plt Count 214 MPV 8.7 Neut % (Auto) 95.4 H Lymph % (Auto) 2.3 L Teller % (Auto) 1.6 Eos % (Auto) 0.6 Baso % (Auto) 0.1 Neut # (Auto) 12.9 H Lymph # (Auto) 0.3 L Teller # (Auto) 0.2 Eos # (Auto) 0.1 Baso # (Auto) 0.0 Neutrophils % (Manual) 91 H Band Neutrophils % 1 Lymphocytes % (Manual) 4 L Monocytes % (Manual) 4 Platelet Estimate Normal Hypochromasia (manual) Slight Poikilocytosis (manual Anisocytosis (manual) PT INR APTT pO2 35 VBG pH 7.36 VBG pCO2 31 L VBG HCO3 18.7 VBG Total CO2 18.5 L VBG O2 Sat (Calc) 76.6 H VBG Base Excess -6.8 L VBG Potassium 2.5 L* Sodium 144.0 Chloride 113.0 H Glucose 78 Lactate 1.9 Crit Value Called To Neli galvan md Crit Value Called By Gerald traylor oil truck driver Crit Value Read Back Y Blood Gas Notified Time 1751 Potassium Carbon Dioxide Anion Gap BUN Creatinine Est GFR ( Amer) Est GFR (Non-Af Amer) Random Glucose Calcium Phosphorus Magnesium Total Bilirubin AST ALT Alkaline Phosphatase Total Protein Albumin Globulin Albumin/Globulin Ratio Venous Blood Potassium 2.5 L* Urine Color Yellow Urine Clarity Clear Urine pH 6.0 Ur Specific [place] 1.014 Urine Protein Negative Urine Glucose (UA) Normal Urine Ketones Negative Urine Blood Negative Urine Nitrate Negative Urine Bilirubin Negative Urine Urobilinogen 4.0 H Ur Leukocyte Esterase Trace Urine WBC (Auto) < 1 Urine RBC (Auto) 2 Ur Squamous Epith Cells 1 Urine HCG, Qual Hepatitis A IgM Ab Hep Bs Antigen Hep B Core IgM Ab Hepatitis C Antibody HIV 1&2 Antibody Screen Influenza Typ A,B (EIA) 12/14/17 12/14/17 12/14/17 18:00 18:25 18:57 WBC RBC Hgb Hct MCV MCH MCHC RDW Plt Count MPV Neut % (Auto) Lymph % (Auto) Teller % (Auto) Eos % (Auto) Baso % (Auto) Neut # (Auto) Lymph # (Auto) Teller # (Auto) Eos # (Auto) Baso # (Auto) Neutrophils % (Manual) Band Neutrophils % Lymphocytes % (Manual) Monocytes % (Manual) Platelet Estimate Hypochromasia (manual) Poikilocytosis (manual Anisocytosis (manual) PT INR APTT pO2 VBG pH VBG pCO2 VBG HCO3 VBG Total CO2 VBG O2 Sat (Calc) VBG Base Excess VBG Potassium Sodium 137 Chloride 102 Glucose Lactate Crit Value Called To Crit Value Called By Crit Value Read Back Blood Gas Notified Time Potassium 4.3 Carbon Dioxide 24 Anion Gap 15 BUN 14 Creatinine 0.6 L Est GFR ( Amer) > 60 Est GFR (Non-Af Amer) > 60 Random Glucose 107 H Calcium 8.6 Phosphorus 2.7 Magnesium 1.2 L Total Bilirubin 1.8 H AST 515 H ALT 289 H Alkaline Phosphatase 508 H Total Protein 6.2 L Albumin 3.4 L Globulin 2.8 Albumin/Globulin Ratio 1.2 Venous Blood Potassium Urine Color Urine Clarity Urine pH Ur Specific [place] Urine Protein Urine Glucose (UA) Urine Ketones Urine Blood Urine Nitrate Urine Bilirubin Urine Urobilinogen Ur Leukocyte Esterase Urine WBC (Auto) Urine RBC (Auto) Ur Squamous Epith Cells Urine HCG, Qual Hepatitis A IgM Ab Hep Bs Antigen Hep B Core IgM Ab Hepatitis C Antibody HIV 1&2 Antibody Screen Influenza Typ A,B (EIA) Negative for flu a/b 12/14/17 12/15/17 12/15/17 19:49 06:25 06:25 WBC 16.5 H RBC 3.62 L Hgb 10.8 L Hct 32.1 L MCV 88.8 MCH 29.7 MCHC 33.5 RDW 14.4 Plt Count 196 MPV 9.3 Neut % (Auto) 91.1 H Lymph % (Auto) 4.5 L Teller % (Auto) 3.6 Eos % (Auto) 0.6 Baso % (Auto) 0.2 Neut # (Auto) 15.0 H Lymph # (Auto) 0.7 L Teller # (Auto) 0.6 Eos # (Auto) 0.1 Baso # (Auto) 0.0 Neutrophils % (Manual) 93 H Band Neutrophils % Lymphocytes % (Manual) 4 L Monocytes % (Manual) 3 Platelet Estimate Normal Hypochromasia (manual) Slight Poikilocytosis (manual Slight Anisocytosis (manual) Slight PT 13.6 H INR 1.2 APTT 34 pO2 VBG pH VBG pCO2 VBG HCO3 VBG Total CO2 VBG O2 Sat (Calc) VBG Base Excess VBG Potassium Sodium Chloride Glucose Lactate Crit Value Called To Crit Value Called By Crit Value Read Back Blood Gas Notified Time Potassium Carbon Dioxide Anion Gap BUN Creatinine Est GFR ( Amer) Est GFR (Non-Af Amer) Random Glucose Calcium Phosphorus Magnesium Total Bilirubin AST ALT Alkaline Phosphatase Total Protein Albumin Globulin Albumin/Globulin Ratio Venous Blood Potassium Urine Color Urine Clarity Urine pH Ur Specific [place] Urine Protein Urine Glucose (UA) Urine Ketones Urine Blood Urine Nitrate Urine Bilirubin Urine Urobilinogen Ur Leukocyte Esterase Urine WBC (Auto) Urine RBC (Auto) Ur Squamous Epith Cells Urine HCG, Qual Hepatitis A IgM Ab Negative Hep Bs Antigen Negative Hep B Core IgM Ab Negative Hepatitis C Antibody Reactive HIV 1&2 Antibody Screen Influenza Typ A,B (EIA) 12/15/17 12/15/17 12/15/17 06:25 10:11 13:36 WBC RBC Hgb Hct MCV MCH MCHC RDW Plt Count MPV Neut % (Auto) Lymph % (Auto) Teller % (Auto) Eos % (Auto) Baso % (Auto) Neut # (Auto) Lymph # (Auto) Teller # (Auto) Eos # (Auto) Baso # (Auto) Neutrophils % (Manual) Band Neutrophils % Lymphocytes % (Manual) Monocytes % (Manual) Platelet Estimate Hypochromasia (manual) Poikilocytosis (manual Anisocytosis (manual) PT INR APTT pO2 VBG pH VBG pCO2 VBG HCO3 VBG Total CO2 VBG O2 Sat (Calc) VBG Base Excess VBG Potassium Sodium 140 Chloride 109 H Glucose Lactate Crit Value Called To Crit Value Called By Crit Value Read Back Blood Gas Notified Time Potassium 4.4 Carbon Dioxide 24 Anion Gap 12 BUN 11 Creatinine 0.6 L Est GFR ( Amer) > 60 Est GFR (Non-Af Amer) > 60 Random Glucose 98 Calcium 8.4 L Phosphorus 3.6 Magnesium 2.2 Total Bilirubin 3.5 H AST 238 H D ALT 221 H D Alkaline Phosphatase 371 H D Total Protein 5.4 L Albumin 2.9 L Globulin 2.5 Albumin/Globulin Ratio 1.2 Venous Blood Potassium Urine Color Urine Clarity Urine pH Ur Specific [place] Urine Protein Urine Glucose (UA) Urine Ketones Urine Blood Urine Nitrate Urine Bilirubin Urine Urobilinogen Ur Leukocyte Esterase Urine WBC (Auto) Urine RBC (Auto) Ur Squamous Epith Cells Urine HCG, Qual Negative Hepatitis A IgM Ab Hep Bs Antigen Hep B Core IgM Ab Hepatitis C Antibody HIV 1&2 Antibody Screen Negative Influenza Typ A,B (EIA) Attending/Attestation - Attestation I have personally seen and examined this patient.: Yes I have fully participated in the care of the patient.: Yes I have reviewed all pertinent clinical information: Yes Notes (Text): 12/15/17 15:33 I have seen and examined patient with GI fellow. Agree with above documentation with the following additions. In brief, this is a 52 year old female with history of obesity s/p gastric bypass 2 years ago, opioid use on methadone, asthma who presents to hospital with complaint of fatigue and fever. GI called for evaluation of elevated LFTs. She was painting her outdoor deck when she developed sudden onset fatigue and fever up to 102 yesterday. Prior to this she was in usual state of health. She admits to recent antibiotic use for UTI and URI however otherwise denies abdominal pain, nausea, vomiting, jaundice, pruritis, or prior history of liver disease. She was found to have HCV positive antibody on this admission. She had an EGD/colonoscopy 2 years ago prior to bariatric surgery which were normal as per patient. History of gastric bypass Opioid use on methadone Transaminitis - etiology unclear, though patient with +HCV Ab. ?DILI given recent antibiotic use Fever - unknown origin - Diet as tolerated - Obtain abdominal US - CT imaging ordered by medical team, follow up results - Continue to monitor LFTs, fractionate bilirubin - Obtain HCV viral load - Obtain autoimmune serologies - Evaluate for HIV - Will continue to monitor patient clinical course
[2017-12-15] MEDS: Piperacill/Tazo 3.375gm in Dex 3.375 GM/50 ML BAG IVPB SCH ×3 (11:24→22:06)
[2017-12-15] MEDS ORDERED: Iodixanol 320 mg/ml 150 ml Bottle IV ONE (14:05)
--- NOTE | 2017-12-15 16:11 | CT ---
Date of service: 12/15/2017 PROCEDURE: CT Chest, Abdomen and Pelvis with intravenous contrast HISTORY: Elevated liver enzymes COMPARISON: None. TECHNIQUE: IV dose administered: 100 mL Visipaque 320. Axial and reformatted coronal and sagittal CT images of the chest abdomen and pelvis were obtained after IV and oral contrast administration. Radiation dose: Total exam DLP = 418.03 mGy-cm. This CT exam was performed using one or more of the following dose reduction techniques: Automated exposure control, adjustment of the mA and/or kV according to patient size, and/or use of iterative reconstruction technique. FINDINGS: CT CHEST WITH CONTRAST: LUNGS: There are reticular and nodular opacities noted at the lungs bilaterally more prominent in the right upper lobe of uncertain etiology. The differential consideration includes sequela of prior infection or inflammatory process such as sarcoidosis. The possibility of active infectious process is less likely. There are small cystic formation also noted in the lungs suggestive of mild emphysema. MEDIASTINUM: Mild diffuse esophageal mucosal thickening is noted. There is mild dietitian of the distal esophagus suggestive of gastroesophageal reflux. . Normal caliber aorta and pulmonary arterial trunk. No aortic dissection. Normal size heart. LYMPH NODES: Small foci of calcification noted at the right paratracheal likely represent calcified lymph nodes. PLEURA: No evidence of pleural effusion or pneumothorax. BONES: Unremarkable. OTHER FINDINGS: None. CT ABDOMEN AND PELVIS: LIVER: Mild heterogeneous and coarse enhancement of the liver is noted. Mild intrahepatic biliary ductal dilatation is also noted. GALLBLADDER AND BILE DUCTS: The gallbladder is distended demonstrate diffuse wall thickening. There is pericholecystic fluid noted. The common bile duct is mildly dilated. The possibility of cholecystitis or choledocholithiasis is not totally excluded. PANCREAS: The pancreas is slightly heterogeneous. The main pancreatic duct is prominent in size. No definite CT evidence of mass lesion in the pancreas. SPLEEN: Unremarkable. ADRENALS: Unremarkable. No mass. KIDNEYS AND URETERS: The kidneys enhance symmetrically. VASCULATURE: Unremarkable. No aortic aneurysm. BOWEL: Mildly dilated small bowel loops noted. The patient is status post prior gastric surgery and likely gastro small-bowel bypass . No evidence of high-grade bowel obstruction. Mild constipation is noted. APPENDIX: No evidence of appendicitis. PERITONEUM: Unremarkable. No free fluid. No free air. LYMPH NODES: No evidence of significant lymphadenopathy. Slightly prominent retroperitoneal and periaortic lymph nodes are noted. BLADDER: Unremarkable. REPRODUCTIVE: Unremarkable. BONES: No acute fracture. OTHER FINDINGS: None. IMPRESSION: Scattered nodular and reticular opacities in the lungs more prominent in the upper lobes right more than left. Findings are nonspecific and may represent sequela of prior infection or inflammatory process such as sarcoidosis or prior multifocal pneumonia. The possibility of acute/active infectious process or neoplasm is less likely. Mild emphysematous changes. [id number] intrahepatic biliary ductal dilatation and mildly dilated CBD. The possibility of choledocholithiasis is not totally excluded. If clinically warranted further assessment by MRCP is suggested. Distended gallbladder demonstrate diffuse wall thickening. Trace pericholecystic fluid is also noted. Correlate clinically for cholecystitis. Otherwise no evidence of acute pathology in the abdomen and pelvis.
[2017-12-15] MEDS ORDERED: Albuterol-Ipratrop 3 mg / 0.5 (3 ml) UD INH PRN (18:13)
--- NOTE | 2017-12-15 19:50 | CARD ---
APPROVED REPORT Date of service: 12/14/2017 EKG Measurement Heart [id number] <Conclusion> Normal sinus rhythm Normal ECG
[2017-12-16] MEDS: Sodium Chloride 0.9% 1,000 ML IV SCH ×3 (03:45→23:55)
[2017-12-16] MEDS: Piperacill/Tazo 3.375gm in Dex 3.375 GM/50 ML BAG IVPB SCH ×4 (05:34→22:50)
--- NOTE | 2017-12-16 05:57 | CP.PCM.PN ---
<Yaneth Ovalle - Last Filed: 12/16/17 19:32> Subjective - Date & Time of Evaluation Date of Evaluation: 12/16/17 Time of Evaluation: 09:30 - Subjective Subjective: PGY-1 Yaneth Ovalle D.O. Medicine Progress note for Dr. Regalado service : Patient seen and examined. This morning, the patient is sitting comfortably in her bed. She reports that she is feeling much improved. Denies fevers and chills and no fevers recorded overnight. Patients abdominal u/s results were pending at time of initial evaluation. Patient was seen later in the day. Abnormal abdominal u/s results were explained. General surgery was consulted and recommended a laproscopic cholecystectomy tomorrow. The patient is is agreeable, and the surgeon, Dr. Newton will obtain informed consent. Objective - Vital Signs/Intake and Output Vital Signs (last 24 hours): Temp Pulse Resp BP Pulse Ox 97.4 F L 50 L 20 120/70 97 12/16/17 00:00 12/16/17 00:00 12/16/17 00:00 12/16/17 00:00 12/16/17 01:32 Intake and Output: 12/15/17 12/16/17 18:59 06:59 Intake Total 1900 1000 Balance 1900 1000 - Medications Medications: Current Medications Albuterol/Ipratropium (Duoneb 3 Mg/0.5 Mg (3 Ml) Ud) 3 ml INH RQ6 PRN PRN Reason: Shortness of Breath Famotidine (Pepcid) 20 mg PO DAILY [facility] Last Admin: 12/15/17 10:06 Dose: 20 mg Sodium Chloride (Sodium Chloride 0.9%) 1,000 mls @ 100 mls/hr IV .Q10H [facility] Last Admin: 12/16/17 03:45 Dose: 100 mls/hr Piperacillin Sod/Tazobactam Sod (Zosyn 3.375 Gm Iv Premix) 3.375 gm in 50 mls @ 100 mls/hr IVPB Q6H [facility] PRN Reason: Protocol Last Admin: 12/16/17 05:34 Dose: 100 mls/hr Ibuprofen (Motrin Tab) 400 mg PO Q6H PRN PRN Reason: Fever >100.4 F Methadone HCl (Methadone) 50 mg PO DAILY [facility] Last Admin: 12/16/17 05:34 Dose: 50 mg Pneumococcal Polyvalent Vaccine (Pneumovax 23 Vaccine) 0.5 ml IM .ONCE ONE Stop: 12/16/17 10:01 - Labs Labs: 12/15/17 06:25 12/15/17 06:25 PT 13.6 SECONDS (9.7-12.2) H 12/14/17 19:49 INR 1.2 12/14/17 19:49 APTT 34 SECONDS (21-34) 12/14/17 19:49 Total Bilirubin 1.1 mg/dL (0.2-1.3) 12/16/17 06:10 AST 106 U/L (14-36) H D 12/16/17 06:10 ALT 153 U/L (9-52) H D 12/16/17 06:10 Alkaline Phosphatase 338 U/L (38-126) H 12/16/17 06:10 12/14/17 17:15 Blood Culture - Preliminary Blood NO GROWTH AFTER 48 HOURS 12/14/17 19:28 Blood Culture - Preliminary Blood NO GROWTH AFTER 48 HOURS 12/14/17 18:37 Urine Culture - Final Urine No Growth (<1,000 CFU/ML) - Constitutional Appears: Well, No Acute Distress, Other (cooperative) - Head Exam Head Exam: ATRAUMATIC, NORMAL INSPECTION, NORMOCEPHALIC - Eye Exam Eye Exam: EOMI, Normal appearance - ENT Exam ENT Exam: Mucous Membranes Moist - Neck Exam Neck Exam: Full ROM, Normal Inspection - Respiratory Exam Respiratory Exam: Clear to Ausculation Bilateral, NORMAL BREATHING PATTERN - Cardiovascular Exam Cardiovascular Exam: REGULAR RHYTHM, +S1, +S2 - GI/Abdominal Exam GI & Abdominal Exam: Soft, Normal Bowel Sounds. absent: Tenderness, Mass, Rebound Additional comments: negative Isola sign - Rectal Exam Rectal Exam: Deferred - Extremities Exam Extremities Exam: Full ROM, Normal Inspection - Back Exam Back Exam: NORMAL INSPECTION. absent: paraspinal tenderness - Neurological Exam Neurological Exam: Alert, Awake, Oriented x3 - Psychiatric Exam Psychiatric exam: Normal Affect, Normal Mood Assessment and Plan - Assessment and Plan (Free Text) Assessment: Patient is a 52 yo female with a PMH of opioid use disorder, HCV ( treated in 2016), gastric bypass, and COPD who presented to the ED via ambulance with fevers and chills x1 day. She has been on antibiotics for UTI since 11/19 (first unknown medication, then cipro). She currently denies urinary symptoms. Upon admission, she was found to have elevated transaminases, alkaline phosphatase, and bilirubin. CXR indicates possible bronchitis with middle and lower lung markings. Labs, CT A/P, and abdominal u/s are concerning for possible choledocholithiasis, cholelithiasis, and/or cholecystitis. General surgery recommends a lap choly. Patient is presently asmptomatic. She is on IV Zosyn. Plan: Acute cholecystitis - GI consult (Bunny) - Gen surg consult (Aman)- rec lap choly tomorrow 12/17 - CT A/P IMPRESSION: Scattered nodular and reticular opacities in the lungs more prominent in the upper lobes right more than left. Findings are nonspecific and may represent sequela of prior infection or inflammatory process such as sarcoidosis or prior multifocal pneumonia. The possibility of acute/active infectious process or neoplasm is less likely. Mild emphysematous changes. [id number] intrahepatic biliary ductal dilatation and mildly dilated CBD. The possibility of choledocholithiasis is not totally excluded. If clinically warranted further assessment by MRCP is suggested. Distended gallbladder demonstrate diffuse wall thickening. Trace pericholecystic fluid is also noted. Correlate clinically for cholecystitis. - Abdominal u/s- positive Isola sign IMPRESSION: Cholelithiasis, biliary sludge, gallbladder wall thickening, and small amount of pericholecystic fluid. Findings are suspicious for acute cholecystitis. CBD dilatation and mild intrahepatic biliary ductal dilatation. Pancreatic ductal dilatation. - HIDA IMPRESSION: Heterogeneous tracer uptake in the liver more prominent on the left liver lobe. Mild left liver lobe intrahepatic biliary ductal dilatation. Visualization of the gallbladder. No scintigraphic evidence of acute cholecystitis. Hyperbilirubinemia, acute, resolved- 2/2 choledocholithiasis then resolution - Bilirubin trend 1.8, 3.5, 1.1 - CMP in AM Transaminitis, acute, improving - Pt has hx of HCV, treatment in 2016 - GI consult- rec outpatient colonoscopy - HIV negative - HCV PCR pending - CMP in AM SIRS, resolved- possibly 2/2 lung infection vs acute cholecystitis - Leukocytosis resolved - Afebrile > 48 hrs - Normal sinus rhythm - Respiratory rate wnl - CXR- middle and lower lobe lung markings, correlate clinically for bronchitis - CT A/P IMPRESSION: Scattered nodular and reticular opacities in the lungs more prominent in the upper lobes right more than left. Findings are nonspecific and may represent sequela of prior infection or inflammatory process such as sarcoidosis or prior multifocal pneumonia. The possibility of acute/active infectious process or neoplasm is less likely. Mild emphysematous changes. - Urinary Cx- final negative - Blood Cx- prelim negative > 48 hrs - Zosyn 3.375 g IV q6hrs - Motrin 400 mg q6hrs prn fever Opioid use disorder, chronic - Outpatient methadone clinic [facility] [phone], dosage confirmed - Methadone 50 mg PO daily COPD, stable - Pt with expiratory wheezing upon admission, resolved - Pt reports quitting smoking ~3 wks ago - CXR- middle and lower lobe lung markings, correlate clinically for bronchitis - Duoneb q6hrs prn for shortness of breath IVF: NS @ 100 mL/hr Code status: full code VTE Ppx: ambulatory, VTE ppx not indicated, CI pre-op GI Ppx: Pecid 20 mg PO daily <Remington Luz - Last Filed: 12/16/17 20:59> Objective - Vital Signs/Intake and Output Vital Signs (last 24 hours): Temp Pulse Resp BP Pulse Ox 98.4 F 54 L 20 122/67 95 12/16/17 07:00 12/16/17 07:00 12/16/17 07:00 12/16/17 07:00 12/16/17 13:50 Intake and Output: 12/16/17 12/17/17 18:59 06:59 Intake Total 1950 Balance 1950 - Medications Medications: Current Medications Albuterol/Ipratropium (Duoneb 3 Mg/0.5 Mg (3 Ml) Ud) 3 ml INH RQ6 PRN PRN Reason: Shortness of Breath Famotidine (Pepcid) 20 mg PO DAILY [facility] Last Admin: 12/16/17 10:06 Dose: 20 mg Sodium Chloride (Sodium Chloride 0.9%) 1,000 mls @ 100 mls/hr IV .Q10H [facility] Last Admin: 12/16/17 13:09 Dose: 100 mls/hr Piperacillin Sod/Tazobactam Sod (Zosyn 3.375 Gm Iv Premix) 3.375 gm in 50 mls @ 100 mls/hr IVPB Q6H [facility] PRN Reason: Protocol Last Admin: 12/16/17 17:15 Dose: 100 mls/hr Ibuprofen (Motrin Tab) 400 mg PO Q6H PRN PRN Reason: Fever >100.4 F Methadone HCl (Methadone) 50 mg PO DAILY [facility] Last Admin: 12/16/17 10:06 Dose: 50 mg - Labs Labs: 12/16/17 06:10 12/16/17 06:10 PT 13.6 SECONDS (9.7-12.2) H 12/14/17 19:49 INR 1.2 12/14/17 19:49 APTT 34 SECONDS (21-34) 12/14/17 19:49 Attending/Attestation - Attestation I have personally seen and examined this patient.: Yes I have fully participated in the care of the patient.: Yes I have reviewed all pertinent clinical information, including history, physical exam and plan: Yes Notes (Text): She is a 52 years old female with h/o substance abuse on Methadone came for fever. Temp max 102F Denies nausea,no vomiting,no abdominal or chest pain 1. Acute cholecystitis 2.Elevated LFT , Dilated CBD and intrahep duct 3.Fever r/o sepsis-negative blood cultures,no fever spikes since yesterday 4.Multifocal pneumonia,r/o sarcoidosis-seen by DR South 5.COPD-stable 6..Opiod use on methadone continue Zosyn Patient was seen by GI recommend out pt f/u.Seen By Dr Newton for acute cholecystitis who recommend cholecystectomy-tomorrow lap choly Assessment and the plan discussed with the resident and I agree with the documentation 12/16/17 20:59
[2017-12-16 06:18] LABS: BASO # 0.1 K/uL (0.0-0.2); BASO % 0.8 % (0.0-2.0); EOS # 0.4 K/uL (0.0-0.7); EOS % 4.6 % (0.0-4.0); HEMOGLOBIN 10.5 g/dL (11.0-16.0); LYMPH # 1.3 K/uL (1.0-4.3); LYMPH % 14.1 % (20.0-40.0); MEAN CORPUSCULAR HEMOGLOBIN 29.7 pg (27.0-31.0); MEAN CORPUSCULAR HGB CONC 33.4 g/dL (33.0-37.0); MEAN PLATELET VOLUME 9.5 fL (7.2-11.7); MONO # 0.4 K/uL (0.0-0.8); MONO % 4.4 % (0.0-10.0); NEUT # 6.9 K/uL (1.8-7.0); NEUT % 76.1 % (50.0-75.0); RBC 3.52 Mil/uL (3.80-5.20); RED CELL DISTRIBUTION WIDTH 14.8 % (11.5-14.5)
--- NOTE | 2017-12-16 06:37 | CP.PCM.PN ---
<Juan F Quintanilla - Last Filed: 12/16/17 12:41> Subjective - Date & Time of Evaluation Date of Evaluation: 12/16/17 Time of Evaluation: 06:50 - Subjective Subjective: PGY-4 GI Fellow Prog Note Pt lying in bed when seen this AM. States she continues to feel well w/o any complaints. Eager for possible DC. Denied abd pain, skin color changes, tremor , signs of bleeding. 5 point ROS negative other than stated above Objective - Vital Signs/Intake and Output Vital Signs (last 24 hours): Temp Pulse Resp BP Pulse Ox 97.4 F L 50 L 20 120/70 97 12/16/17 00:00 12/16/17 00:00 12/16/17 00:00 12/16/17 00:00 12/16/17 01:32 Intake and Output: 12/15/17 12/16/17 18:59 06:59 Intake Total 1899 2039 Balance 0 0 - Medications Medications: Current Medications Albuterol/Ipratropium (Duoneb 3 Mg/0.5 Mg (3 Ml) Ud) 3 ml INH RQ6 PRN PRN Reason: Shortness of Breath Famotidine (Pepcid) 20 mg PO DAILY [facility] Last Admin: 12/15/17 10:06 Dose: 20 mg Sodium Chloride (Sodium Chloride 0.9%) 1,000 mls @ 100 mls/hr IV .Q10H [facility] Last Admin: 12/16/17 03:45 Dose: 100 mls/hr Piperacillin Sod/Tazobactam Sod (Zosyn 3.375 Gm Iv Premix) 3.375 gm in 50 mls @ 100 mls/hr IVPB Q6H [facility] PRN Reason: Protocol Last Admin: 12/16/17 05:34 Dose: 100 mls/hr Ibuprofen (Motrin Tab) 400 mg PO Q6H PRN PRN Reason: Fever >100.4 F Methadone HCl (Methadone) 50 mg PO DAILY [facility] Last Admin: 12/16/17 05:34 Dose: 50 mg Pneumococcal Polyvalent Vaccine (Pneumovax 23 Vaccine) 0.5 ml IM .ONCE ONE Stop: 12/16/17 10:01 - Labs Labs: 12/16/17 06:10 12/15/17 06:25 PT 13.6 SECONDS (9.7-12.2) H 07/29/18 19:49 INR 1.2 12/14/17 19:49 APTT 34 SECONDS (21-34) 12/14/17 19:49 - Constitutional Appears: Well, Non-toxic - Head Exam Head Exam: ATRAUMATIC, NORMAL INSPECTION - Eye Exam Eye Exam: EOMI. absent: Conjunctival injection, Scleral icterus - ENT Exam ENT Exam: Mucous Membranes Moist, Normal External Ear Exam - Respiratory Exam Respiratory Exam: NORMAL BREATHING PATTERN. absent: Accessory Muscle Use, Respiratory Distress - Cardiovascular Exam Cardiovascular Exam: absent: Bradycardia, Tachycardia - GI/Abdominal Exam GI & Abdominal Exam: Soft, Normal Bowel Sounds. absent: Bruit, Distended, Firm , Guarding, Rigid, Tenderness, Diminished Bowel Sounds, Hernia, Hyperactive Bowel Sounds, Hypoactive Bowel Sounds, Mass, Rebound Assessment and Plan - Assessment and Plan (Free Text) Assessment: 52 yo WF with h/o opioid abuse presenting with fevers/chills found to have abnormal liver test. # Abnormal Liver Tests: R factor 1.71 on admission suggestive of cholestatic pattern with ALT 289, AST 515, AP 208, Bili 1.8. All values improved today other than Bili which matthew to 3.5. Concern for drug induced liver injury given multiple recent antibiotic use; however, interestingly was found to be HCV Antibody + which pt did not know about and denies any obvious known exposures. Abd/Pelvis CT with mild-mod intrahep biliary dilation and mild CBD dilation, possible signs of cholecystitis -> atypical presentation as cause for liver test abnormalities? Coarse enchancement of liver; await US to further eval. HIV negative. US also c/ signs of cholecystitis; therefore, seem like an atypical presentation with simply fever and malaise. # HCV Ab Positive: Await HCV PCR # Colon CA Screen: Reportedly CSPY done in 2016 Plan: - F/u HCV PCR Qual - Further liver disease w/u with ASMA, SANTOSH, AMA, Anti-LK, Ceruloplasmin, Alpha-1 - Fractionated Bili - Counseled pt to f/u with PCP and GI - To complete total of 7 day antibiotic course for possible cholecystitis, would avoid Ciprofloxacin. Defer to medicine team regarding Abx choice but should cover GNRs and Anaerobes. OK to DC from GI perspective Thank you for the consult. Pt seen and examined with Dr. Hollis. <Maximo Hollis - Last Filed: 12/16/17 14:36> Objective - Vital Signs/Intake and Output Vital Signs (last 24 hours): Temp Pulse Resp BP Pulse Ox 98.4 F 54 L 20 122/67 95 12/16/17 07:00 12/16/17 07:00 12/16/17 07:00 12/16/17 07:00 12/16/17 13:50 Intake and Output: 12/16/17 12/16/17 06:59 18:59 Intake Total 2039 1949 Balance 2039 1949 - Medications Medications: Current Medications Albuterol/Ipratropium (Duoneb 3 Mg/0.5 Mg (3 Ml) Ud) 3 ml INH RQ6 PRN PRN Reason: Shortness of Breath Famotidine (Pepcid) 20 mg PO DAILY [facility] Last Admin: 12/16/17 10:06 Dose: 20 mg Sodium Chloride (Sodium Chloride 0.9%) 1,000 mls @ 100 mls/hr IV .Q10H [facility] Last Admin: 12/16/17 13:09 Dose: 100 mls/hr Piperacillin Sod/Tazobactam Sod (Zosyn 3.375 Gm Iv Premix) 3.375 gm in 50 mls @ 100 mls/hr IVPB Q6H [facility] PRN Reason: Protocol Last Admin: 12/16/17 11:27 Dose: 100 mls/hr Ibuprofen (Motrin Tab) 400 mg PO Q6H PRN PRN Reason: Fever >100.4 F Methadone HCl (Methadone) 50 mg PO DAILY [facility] Last Admin: 12/16/17 10:06 Dose: 50 mg - Labs Labs: 12/16/17 06:10 12/16/17 06:10 PT 13.6 SECONDS (9.7-12.2) H 12/14/17 19:49 INR 1.2 12/14/17 19:49 APTT 34 SECONDS (21-34) 12/14/17 19:49 Attending/Attestation - Attestation I have personally seen and examined this patient.: Yes I have fully participated in the care of the patient.: Yes I have reviewed all pertinent clinical information, including history, physical exam and plan: Yes Notes (Text): 12/16/17 14:33 I have seen and examined patient with GI fellow. No acute events overnight, she is seen resting in bed comfortably. She denies abdominal pain, nausea, vomiting, fever/chills. She is tolerating PO diet without difficulty, asking to be discharged from hospital. Review of vitals from today are normal. Fever Transaminitis HCV Abdominal US and CT imaging reviewed by me showing cholelithiasis, +misti- cholecystic fluid, dilated CBD - Diet as tolerated - LFTs trending down, continue to monitor - Continue with antibiotic therapy to complete 7 day course - Follow up surgical recommendations regarding potential cholecystectomy - Follow up autoimmune serologies and HCV viral load - From GI standpoint ok to discharge patient home with subsequent outpatient follow up for repeat LFT check and potential treatment evaluation for chronic HCV. No planned GI interventions, will sign off case. Please reconsult as necessary, thank you.
[2017-12-16 07:02] LABS: ALB/GLOB RATIO 1.1 (1.0-2.1); ALT/SGPT 153 U/L (9-52); AST/SGOT 106 U/L (14-36); BLOOD UREA NITROGEN 10 mg/dL (7-17); CALCIUM 8.4 mg/dl (8.6-10.4); GFR AFRICAN-AMERICAN > 60; GFR NON-AFRICAN AMERICAN > 60
[2017-12-16 07:08] LABS: IMMUNOGLOBULIN G 618.7 mg/dL (700.0-1600.0); TRANSFERRIN 139.93 mg/dL (206-381)
[2017-12-16] MEDS ORDERED: Pneumococcal 23-Valent Vaccine IM ONE (10:00)
--- NOTE | 2017-12-16 11:30 | US ---
HISTORY: Elevated Liver Tests COMPARISON: CT chest, abdomen, and pelvis performed earlier same day. TECHNIQUE: Sonographic evaluation of the abdomen. FINDINGS: LIVER: Liver is unremarkable in echogenicity. No focal liver mass is identified. Mild intrahepatic biliary ductal dilatation is identified. Portal vein is patent with normal hepatopetal flow. GALLBLADDER: The gallbladder is physiologically distended. Multiple gallstones noted within the gallbladder. Biliary sludge noted. No gallbladder wall thickening. Small amount of pericholecystic fluid. Gallbladder wall thickening noted measuring 0.5 cm. No sonographic Lewis's sign was appreciated during the exam. COMMON BILE DUCT: Dilated measuring 1 cm. PANCREAS: Visualized pancreatic duct is dilated measuring 0.5 cm. The visualized portions are unremarkable in echogenicity. The remainder of the pancreas is obscured by bowel gas. RIGHT KIDNEY: Measures 10.7cm. Unremarkable in echogenicity. No shadowing renal stone, cyst, or hydronephrosis is identified LEFT KIDNEY: Measures 11.8cm. Unremarkable in echogenicity. No shadowing renal stone, cyst, or hydronephrosis is identified SPLEEN: Measures 8.9cm. Normal in size and unremarkable in echotexture. AORTA: No aneurysmal dilatation of the visualized portions. IVC: Visualized portions are unremarkable.. OTHER FINDINGS: None. IMPRESSION: Cholelithiasis, biliary sludge, gallbladder wall thickening, and small amount of pericholecystic fluid. Findings are suspicious for acute cholecystitis. CBD dilatation and mild intrahepatic biliary ductal dilatation. Pancreatic ductal dilatation.
--- NOTE | 2017-12-16 14:02 | CP.PCM.CON ---
History of Present Illness - History of Present Illness History of Present Illness: reason for consultation: abnormal CAT scan of chest 52-year-old female with history of substance abuse on methadone, history of asthma, status post gastric bypass surgery presented to emergency room complaining of chills. Denies shortness of breath, denies cough, denies chest pain. Patient found to have elevated white count, abnormal liver function test and CAT scan of the chest and abdomen consistent with chronic lung changes/ lymphadenopathy and gallstones/cholecystitis. 52 yo WF with h/o asthma, opiod abuse (on methadone) presenting with complaint of fevers and chills found to have abnormal Liver tests for which GI is consulted. SurgHx: Gastric bypass. States had EGD and CSPY done at time of bypass and was told unremarkable Meds: Reviewed in MAR FamHx: Denies fam h/o GI/liver problems SocHx: 05/22 ppd smoker, + opioids, denied EtOH All: NKDA Review of Systems - Review of Systems All systems: reviewed and no additional remarkable complaints except (chills) Past Patient History - Past Social History Smoking Status: Light Smoker < 10 Cigarettes Daily - PULMONARY Hx Asthma: Yes Hx Chronic Obstructive Pulmonary Disease (COPD): Yes - PSYCHIATRIC Hx Substance Use: No Meds Allergies/Adverse Reactions: Allergies Allergy/AdvReac Type Severity Reaction Status Date / Time No Known Allergies Allergy Verified 12/14/17 16:58 - Medications Medications: Current Medications Albuterol/Ipratropium (Duoneb 3 Mg/0.5 Mg (3 Ml) Ud) 3 ml INH RQ6 PRN PRN Reason: Shortness of Breath Famotidine (Pepcid) 20 mg PO DAILY [facility] Last Admin: 12/16/17 10:06 Dose: 20 mg Sodium Chloride (Sodium Chloride 0.9%) 1,000 mls @ 100 mls/hr IV .Q10H [facility] Last Admin: 12/16/17 13:09 Dose: 100 mls/hr Piperacillin Sod/Tazobactam Sod (Zosyn 3.375 Gm Iv Premix) 3.375 gm in 50 mls @ 100 mls/hr IVPB Q6H [facility] PRN Reason: Protocol Last Admin: 12/16/17 11:27 Dose: 100 mls/hr Ibuprofen (Motrin Tab) 400 mg PO Q6H PRN PRN Reason: Fever >100.4 F Methadone HCl (Methadone) 50 mg PO DAILY [facility] Last Admin: 12/16/17 10:06 Dose: 50 mg Physical Exam - Head Exam Head Exam: ATRAUMATIC, NORMOCEPHALIC - ENT Exam ENT Exam: Mucous Membranes Moist - Respiratory Exam Respiratory Exam: Clear to Auscultation Bilateral - Cardiovascular Exam Cardiovascular Exam: REGULAR RHYTHM - GI/Abdominal Exam GI & Abdominal Exam: Normal Bowel Sounds, Soft - Extremities Exam Extremities exam: Positive for: normal inspection - Neurological Exam Neurological exam: Alert, Oriented x3 Results - Vital Signs Recent Vital Signs: Last Vital Signs Temp 98.4 F 12/16/17 07:00 Pulse 54 L 12/16/17 07:00 Resp 20 12/16/17 07:00 BP 122/67 12/16/17 07:00 Pulse Ox 95 12/16/17 07:00 - Labs Result Diagrams: 12/16/17 06:10 12/16/17 06:10 Labs: Laboratory Results - last 24 hr 12/15/17 12/16/17 12/16/17 13:36 06:10 06:10 WBC 9.0 RBC 3.52 L Hgb 10.5 L Hct 31.4 L MCV 89.0 MCH 29.7 MCHC 33.4 RDW 14.8 H Plt Count 170 MPV 9.5 Neut % (Auto) 76.1 H Lymph % (Auto) 14.1 L [place] % (Auto) 4.4 Eos % (Auto) 4.6 H Baso % (Auto) 0.8 Neut # (Auto) 6.9 Lymph # (Auto) 1.3 [place] # (Auto) 0.4 Eos # (Auto) 0.4 Baso # (Auto) 0.1 Sodium 141 Potassium 3.6 Chloride 109 H Carbon Dioxide 22 Anion Gap 13 BUN 10 Creatinine 0.5 L Est GFR ( Amer) > 60 Est GFR (Non-Af Amer) > 60 Random Glucose 88 Calcium 8.4 L Phosphorus 3.0 Magnesium 1.8 Iron Transferrin Ferritin 162.0 Total Bilirubin 1.1 AST 106 H D ALT 153 H D Alkaline Phosphatase 338 H Total Protein 5.7 L Albumin 3.0 L Globulin 2.7 Albumin/Globulin Ratio 1.1 IgG HIV 1&2 Antibody Screen Negative 12/16/17 12/16/17 06:10 06:10 WBC RBC Hgb Hct MCV MCH MCHC RDW Plt Count MPV Neut % (Auto) Lymph % (Auto) [place] % (Auto) Eos % (Auto) Baso % (Auto) Neut # (Auto) Lymph # (Auto) [place] # (Auto) Eos # (Auto) Baso # (Auto) Sodium Potassium Chloride Carbon Dioxide Anion Gap BUN Creatinine Est GFR ( Amer) Est GFR (Non-Af Amer) Random Glucose Calcium Phosphorus Magnesium Iron 25 L Transferrin 139.93 L Ferritin Total Bilirubin AST ALT Alkaline Phosphatase Total Protein Albumin Globulin Albumin/Globulin Ratio IgG 618.7 L HIV 1&2 Antibody Screen Assessment & Plan (1) Abnormal CT scan, chest Status: Acute (2) Abnormal liver function test Status: Acute (3) Elevated WBCs Status: Acute (4) Opioid abuse Status: Acute
--- NOTE | 2017-12-16 17:24 | NM ---
Date of service: 12/16/2017 PROCEDURE: Nuclear Medicine Hepatobiliary Scan HISTORY: possible cholecystitis COMPARISON: Comparison is made to the previous CT of the abdomen and pelvis dated 12/15/2017 in the previous ultrasound of the abdomen dated 12/15/2017. TECHNIQUE: 5.9 mCi of technetium 99m Mebrofenin was administered intravenously. Planar images of the abdomen were obtained at 5 min intervals to 60 mins. Delayed images were also obtained. FINDINGS: LIVER: There is heterogeneous radiotracer uptake in the liver noted more prominent in the left liver lobe. COMMON BILE DUCT: identified at 45 minutes mins. GALLBLADDER: identified at 50 mins. SMALL BOWEL: Identified at 65 mins. IMPRESSION: Heterogeneous tracer uptake in the liver more prominent on the left liver lobe. Mild left liver lobe intrahepatic biliary ductal dilatation. Visualization of the gallbladder. No scintigraphic evidence of acute cholecystitis. Findings reported to the referring physician on 12/16/2017 at 5:10 p.m.
[2017-12-17] MEDS: Piperacill/Tazo 3.375gm in Dex 3.375 GM/50 ML BAG IVPB SCH ×2 (05:12→11:00)
--- NOTE | 2017-12-17 06:12 | CP.PCM.PN ---
Subjective - Date & Time of Evaluation Date of Evaluation: 12/17/17 Objective - Vital Signs/Intake and Output Vital Signs (last 24 hours): Temp Pulse Resp BP Pulse Ox 98.8 F 50 L 20 157/87 H 95 12/16/17 22:00 12/16/17 22:00 12/16/17 22:00 12/16/17 22:00 12/17/17 01:15 Intake and Output: 12/16/17 12/17/17 18:59 06:59 Intake Total 1950 1200 Output Total 500 Balance 1950 700 - Medications Medications: Current Medications Albuterol/Ipratropium (Duoneb 3 Mg/0.5 Mg (3 Ml) Ud) 3 ml INH RQ6 PRN PRN Reason: Shortness of Breath Famotidine (Pepcid) 20 mg PO DAILY [facility] Last Admin: 12/16/17 10:06 Dose: 20 mg Sodium Chloride (Sodium Chloride 0.9%) 1,000 mls @ 100 mls/hr IV .Q10H [facility] Last Admin: 12/16/17 23:55 Dose: Not Given Piperacillin Sod/Tazobactam Sod (Zosyn 3.375 Gm Iv Premix) 3.375 gm in 50 mls @ 100 mls/hr IVPB Q6H [facility] PRN Reason: Protocol Last Admin: 12/17/17 05:12 Dose: 100 mls/hr Ibuprofen (Motrin Tab) 400 mg PO Q6H PRN PRN Reason: Fever >100.4 F Methadone HCl (Methadone) 50 mg PO DAILY [facility] Last Admin: 12/16/17 10:06 Dose: 50 mg - Labs Labs: 12/16/17 06:10 12/16/17 06:10 PT 13.6 SECONDS (9.7-12.2) H 12/14/17 19:49 INR 1.2 12/14/17 19:49 APTT 34 SECONDS (21-34) 12/14/17 19:49
[2017-12-17 07:11] LABS: CERULOPLASMIN 35 mg/dL (18-53)
[2017-12-17 08:40] VITALS: BP 154/79; PULSE 60; TEMP 98.2; O2SAT 97
[2017-12-17] MEDS: Sodium Chloride 0.9% 1,000 ML IV SCH (10:00)
--- NOTE | 2017-12-17 15:49 | CP.PCM.DIS ---
Provider - Provider Date of Admission: 12/14/17 18:55 Attending physician: Remington Luz MD Hospital Course - Lab Results Lab Results: Micro Results 12/14/17 17:15 Blood Blood Culture - Preliminary NO GROWTH AFTER 48 HOURS 12/14/17 19:28 Blood Blood Culture - Preliminary NO GROWTH AFTER 48 HOURS 12/14/17 18:37 Urine Urine Culture - Final No Growth (<1,000 CFU/ML) Most Recent Lab Values WBC 9.0 K/uL (4.8-10.8) 12/16/17 06:10 RBC 3.52 Mil/uL (3.80-5.20) L 12/16/17 06:10 Hgb 10.5 g/dL (11.0-16.0) L 12/16/17 06:10 Hct 31.4 % (34.0-47.0) L 12/16/17 06:10 MCV 89.0 fL (81.0-99.0) 12/16/17 06:10 MCH 29.7 pg (27.0-31.0) 12/16/17 06:10 MCHC 33.4 g/dL (33.0-37.0) 12/16/17 06:10 RDW 14.8 % (11.5-14.5) H 12/16/17 06:10 Plt Count 170 K/uL (130-400) 12/16/17 06:10 MPV 9.5 fL (7.2-11.7) 12/16/17 06:10 Neut % (Auto) 76.1 % (50.0-75.0) H 12/16/17 06:10 Lymph % (Auto) 14.1 % (20.0-40.0) L 12/16/17 06:10 [place] % (Auto) 4.4 % (0.0-10.0) 12/16/17 06:10 Eos % (Auto) 4.6 % (0.0-4.0) H 12/16/17 06:10 Baso % (Auto) 0.8 % (0.0-2.0) 12/16/17 06:10 Neut # (Auto) 6.9 K/uL (1.8-7.0) 12/16/17 06:10 Lymph # (Auto) 1.3 K/uL (1.0-4.3) 12/16/17 06:10 [place] # (Auto) 0.4 K/uL (0.0-0.8) 12/16/17 06:10 Eos # (Auto) 0.4 K/uL (0.0-0.7) 12/16/17 06:10 Baso # (Auto) 0.1 K/uL (0.0-0.2) 12/16/17 06:10 Neutrophils % (Manual) 93 % (50-75) H 12/15/17 06:25 Band Neutrophils % 1 % (0-2) 12/14/17 17:53 Lymphocytes % (Manual) 4 % (20-40) L 12/15/17 06:25 Monocytes % (Manual) 3 % (0-10) 12/15/17 06:25 Platelet Estimate Normal (NORMAL) 12/15/17 06:25 Hypochromasia (manual) Slight 12/15/17 06:25 Poikilocytosis (manual Slight 12/15/17 06:25 Anisocytosis (manual) Slight 12/15/17 06:25 PT 13.6 SECONDS (9.7-12.2) H 12/14/17 19:49 INR 1.2 12/14/17 19:49 APTT 34 SECONDS (21-34) 12/14/17 19:49 pO2 35 mm/Hg (30-55) 12/14/17 17:45 VBG pH 7.36 (7.32-7.43) 12/14/17 17:45 VBG pCO2 31 mmHg (40-60) L 12/14/17 17:45 VBG HCO3 18.7 mmol/L 12/14/17 17:45 VBG Total CO2 18.5 mmol/L (22-28) L 12/14/17 17:45 VBG O2 Sat (Calc) 76.6 % (40-65) H 12/14/17 17:45 VBG Base Excess -6.8 mmol/L (0.0-2.0) L 12/14/17 17:45 VBG Potassium 2.5 mmol/L (3.6-5.2) L* 12/14/17 17:45 Sodium 144.0 mmol/l (132-148) 12/14/17 17:45 Chloride 113.0 mmol/L (98-107) H 12/14/17 17:45 Glucose 78 mg/dl (65-105) 12/14/17 17:45 Lactate 1.9 mmol/L (0.7-2.1) 12/14/17 17:45 Crit Value Called To Neli galvan md 12/14/17 17:45 Crit Value Called By Gerald traylor sped teacher 12/14/17 17:45 Crit Value Read Back Y 12/14/17 17:45 Blood Gas Notified Time 1751 12/14/17 17:45 Sodium 141 mmol/L (132-148) 12/16/17 06:10 Potassium 3.6 mmol/L (3.6-5.2) 12/16/17 06:10 Chloride 109 mmol/L (98-107) H 12/16/17 06:10 Carbon Dioxide 22 mmol/L (22-30) 12/16/17 06:10 Anion Gap 13 (10-20) 12/16/17 06:10 BUN 10 mg/dL (7-17) 12/16/17 06:10 Creatinine 0.5 mg/dL (0.7-1.2) L 12/16/17 06:10 Est GFR ( Amer) > 60 12/16/17 06:10 Est GFR (Non-Af Amer) > 60 12/16/17 06:10 Random Glucose 88 mg/dL (65-105) 12/16/17 06:10 Calcium 8.4 mg/dl (8.6-10.4) L 12/16/17 06:10 Phosphorus 3.0 mg/dL (2.5-4.5) 12/16/17 06:10 Magnesium 1.8 mg/dL (1.6-2.3) 12/16/17 06:10 Iron 25 ug/dL (37-170) L 12/16/17 06:10 Transferrin 139.93 mg/dL (206-381) L 12/16/17 06:10 Ferritin 162.0 ng/mL 12/16/17 06:10 Total Bilirubin 1.1 mg/dL (0.2-1.3) 12/16/17 06:10 AST 106 U/L (14-36) H D 12/16/17 06:10 ALT 153 U/L (9-52) H D 12/16/17 06:10 Alkaline Phosphatase 338 U/L (38-126) H 12/16/17 06:10 Total Protein 5.7 g/dL (6.3-8.3) L 12/16/17 06:10 Albumin 3.0 g/dL (3.5-5.0) L 12/16/17 06:10 Globulin 2.7 gm/dL (2.2-3.9) 12/16/17 06:10 Albumin/Globulin Ratio 1.1 (1.0-2.1) 12/16/17 06:10 [id number]-[id number] 191 mg/dL (83-199) 12/16/17 06:10 Ceruloplasmin 35 mg/dL (18-53) 12/16/17 06:10 Venous Blood Potassium 2.5 mmol/L (3.6-5.2) L* 12/14/17 17:45 Urine Color Yellow (YELLOW) 12/14/17 17:22 Urine Clarity Clear (Clear) 12/14/17 17:22 Urine pH 6.0 (5.0-8.0) 12/14/17 17:22 Ur Specific [place] 1.014 (1.003-1.030) 12/14/17 17:22 Urine Protein Negative mg/dL (NEGATIVE) 12/14/17 17:22 Urine Glucose (UA) Normal mg/dL (Normal) 12/14/17 17:22 Urine Ketones Negative mg/dL (NEGATIVE) 12/14/17 17:22 Urine Blood Negative (NEGATIVE) 12/14/17 17:22 Urine Nitrate Negative (NEGATIVE) 12/14/17 17:22 Urine Bilirubin Negative (NEGATIVE) 12/14/17 17:22 Urine Urobilinogen 4.0 mg/dL (0.2-1.0) H 12/14/17 17:22 Ur Leukocyte Esterase Trace Aleksandar/uL (Negative) 12/14/17 17:22 Urine WBC (Auto) < 1 /hpf (0-5) 12/14/17 17:22 Urine RBC (Auto) 2 /hpf (0-3) 12/14/17 17:22 Ur Squamous Epith Cells 1 /hpf (0-5) 12/14/17 17:22 Urine HCG, Qual Negative (NEGATIVE) 12/15/17 10:11 IgG 618.7 mg/dL (700.0-1600.0) L 12/16/17 06:10 Anti-Mitochondrial Ab Negative (Negative) 12/16/17 06:10 Hepatitis A IgM Ab Negative (NEGATIVE) 12/15/17 06:25 Hep Bs Antigen Negative (NEGATIVE) 12/15/17 06:25 Hep B Core IgM Ab Negative (NEGATIVE) 12/15/17 06:25 Hepatitis C Antibody Reactive (NEGATIVE) 12/15/17 06:25 HIV 1&2 Antibody Screen Negative (NEGATIVE) 12/15/17 13:36 Influenza Typ A,B (EIA) Negative for flu a/b (NEGATIVE) 12/14/17 18:00 Discharge Exam - Head Exam Head Exam: ATRAUMATIC, NORMAL INSPECTION, NORMOCEPHALIC Discharge Plan - Discharge Medications Prescriptions: Amoxicillin/Clavulanate [Augmentin 875 MG-125 MG] 1 tab PO BID #8 tab - Follow Up Plan Condition: GOOD Disposition: HOME/ ROUTINE Instructions: Hypokalemia (DC), Low Magnesium Level (DC), Fever in Adults (GEN) , Leukocytosis (DC) Additional Instructions: Patient is stable for discharge home as per Dr. Mittal. Patient is to follow- up with her PCP Dr. Jacob in [place], GI Dr. Hollis, and general surgeon Dr. Munir Magaña within 1 week of discharge. Patient is being discharged with prescription for Augmentin. Patient should take this by mouth twice a day for the next 4 days. Patient is also advised to take a probiotic yogurt once day for the next 4 days as well. Patient is to return to the ED if symptoms recur or are worsening. This was explained to the patient who understands and agrees. Referrals: Maximo Hollis MD [Staff Provider] - Munir Magaña MD [Staff Provider] -
--- NOTE | 2017-12-17 20:21 | CP.PCM.DIS ---
Provider - Provider Date of Admission: 12/14/17 18:55 Attending physician: MD Dr. Delio Monte Consults: Dr. Newton (Surgery) Dr. Hollis (GI) Dr. Gaurav South ( Pulm) Time Spent in preparation of Discharge (in minutes): 36 Diagnosis - Discharge Diagnosis (1) Cholecystitis Status: Acute (2) Hyperbilirubinemia Status: Acute (3) Transaminitis Status: Acute (4) COPD (chronic obstructive pulmonary disease) Status: Chronic (5) HCV antibody positive Status: Chronic Hospital Course - Lab Results Lab Results: Micro Results 12/14/17 17:15 Blood Blood Culture - Preliminary NO GROWTH AFTER 3 DAYS 12/14/17 19:28 Blood Blood Culture - Preliminary NO GROWTH AFTER 3 DAYS 12/14/17 18:37 Urine Urine Culture - Final No Growth (<1,000 CFU/ML) Most Recent Lab Values WBC 9.0 K/uL (4.8-10.8) 12/16/17 06:10 RBC 3.52 Mil/uL (3.80-5.20) L 12/16/17 06:10 Hgb 10.5 g/dL (11.0-16.0) L 12/16/17 06:10 Hct 31.4 % (34.0-47.0) L 12/16/17 06:10 MCV 89.0 fL (81.0-99.0) 12/16/17 06:10 MCH 29.7 pg (27.0-31.0) 12/16/17 06:10 MCHC 33.4 g/dL (33.0-37.0) 12/16/17 06:10 RDW 14.8 % (11.5-14.5) H 12/16/17 06:10 Plt Count 170 K/uL (130-400) 12/16/17 06:10 MPV 9.5 fL (7.2-11.7) 12/16/17 06:10 Neut % (Auto) 76.1 % (50.0-75.0) H 12/16/17 06:10 Lymph % (Auto) 14.1 % (20.0-40.0) L 12/16/17 06:10 [place] % (Auto) 4.4 % (0.0-10.0) 12/16/17 06:10 Eos % (Auto) 4.6 % (0.0-4.0) H 12/16/17 06:10 Baso % (Auto) 0.8 % (0.0-2.0) 12/16/17 06:10 Neut # (Auto) 6.9 K/uL (1.8-7.0) 12/16/17 06:10 Lymph # (Auto) 1.3 K/uL (1.0-4.3) 12/16/17 06:10 [place] # (Auto) 0.4 K/uL (0.0-0.8) 12/16/17 06:10 Eos # (Auto) 0.4 K/uL (0.0-0.7) 12/16/17 06:10 Baso # (Auto) 0.1 K/uL (0.0-0.2) 12/16/17 06:10 Neutrophils % (Manual) 93 % (50-75) H 12/15/17 06:25 Band Neutrophils % 1 % (0-2) 12/14/17 17:53 Lymphocytes % (Manual) 4 % (20-40) L 12/15/17 06:25 Monocytes % (Manual) 3 % (0-10) 12/15/17 06:25 Platelet Estimate Normal (NORMAL) 12/15/17 06:25 Hypochromasia (manual) Slight 12/15/17 06:25 Poikilocytosis (manual Slight 12/15/17 06:25 Anisocytosis (manual) Slight 12/15/17 06:25 PT 13.6 SECONDS (9.7-12.2) H 12/14/17 19:49 INR 1.2 12/14/17 19:49 APTT 34 SECONDS (21-34) 12/14/17 19:49 pO2 35 mm/Hg (30-55) 12/14/17 17:45 VBG pH 7.36 (7.32-7.43) 12/14/17 17:45 VBG pCO2 31 mmHg (40-60) L 12/14/17 17:45 VBG HCO3 18.7 mmol/L 12/14/17 17:45 VBG Total CO2 18.5 mmol/L (22-28) L 12/14/17 17:45 VBG O2 Sat (Calc) 76.6 % (40-65) H 12/14/17 17:45 VBG Base Excess -6.8 mmol/L (0.0-2.0) L 12/14/17 17:45 VBG Potassium 2.5 mmol/L (3.6-5.2) L* 12/14/17 17:45 Sodium 144.0 mmol/l (132-148) 12/14/17 17:45 Chloride 113.0 mmol/L (98-107) H 12/14/17 17:45 Glucose 78 mg/dl (65-105) 12/14/17 17:45 Lactate 1.9 mmol/L (0.7-2.1) 12/14/17 17:45 Crit Value Called To Neli galvan md 12/14/17 17:45 Crit Value Called By Gerald traylor lens grinder 12/14/17 17:45 Crit Value Read Back Y 12/14/17 17:45 Blood Gas Notified Time 1751 12/14/17 17:45 Sodium 141 mmol/L (132-148) 12/16/17 06:10 Potassium 3.6 mmol/L (3.6-5.2) 12/16/17 06:10 Chloride 109 mmol/L (98-107) H 12/16/17 06:10 Carbon Dioxide 22 mmol/L (22-30) 12/16/17 06:10 Anion Gap 13 (10-20) 12/16/17 06:10 BUN 10 mg/dL (7-17) 12/16/17 06:10 Creatinine 0.5 mg/dL (0.7-1.2) L 12/16/17 06:10 Est GFR ( Amer) > 60 12/16/17 06:10 Est GFR (Non-Af Amer) > 60 12/16/17 06:10 Random Glucose 88 mg/dL (65-105) 12/16/17 06:10 Calcium 8.4 mg/dl (8.6-10.4) L 12/16/17 06:10 Phosphorus 3.0 mg/dL (2.5-4.5) 12/16/17 06:10 Magnesium 1.8 mg/dL (1.6-2.3) 12/16/17 06:10 Iron 25 ug/dL (37-170) L 12/16/17 06:10 Transferrin 139.93 mg/dL (206-381) L 12/16/17 06:10 Ferritin 162.0 ng/mL 12/16/17 06:10 Total Bilirubin 1.1 mg/dL (0.2-1.3) 12/16/17 06:10 AST 106 U/L (14-36) H D 12/16/17 06:10 ALT 153 U/L (9-52) H D 12/16/17 06:10 Alkaline Phosphatase 338 U/L (38-126) H 12/16/17 06:10 Total Protein 5.7 g/dL (6.3-8.3) L 12/16/17 06:10 Albumin 3.0 g/dL (3.5-5.0) L 12/16/17 06:10 Globulin 2.7 gm/dL (2.2-3.9) 12/16/17 06:10 Albumin/Globulin Ratio 1.1 (1.0-2.1) 12/16/17 06:10 [id number] 191 mg/dL (83-199) 12/16/17 06:10 Ceruloplasmin 35 mg/dL (18-53) 12/16/17 06:10 Venous Blood Potassium 2.5 mmol/L (3.6-5.2) L* 12/14/17 17:45 Urine Color Yellow (YELLOW) 12/14/17 17:22 Urine Clarity Clear (Clear) 12/14/17 17:22 Urine pH 6.0 (5.0-8.0) 12/14/17 17:22 Ur Specific [place] 1.014 (1.003-1.030) 12/14/17 17:22 Urine Protein Negative mg/dL (NEGATIVE) 12/14/17 17:22 Urine Glucose (UA) Normal mg/dL (Normal) 12/14/17 17:22 Urine Ketones Negative mg/dL (NEGATIVE) 12/14/17 17:22 Urine Blood Negative (NEGATIVE) 12/14/17 17:22 Urine Nitrate Negative (NEGATIVE) 12/14/17 17:22 Urine Bilirubin Negative (NEGATIVE) 12/14/17 17:22 Urine Urobilinogen 4.0 mg/dL (0.2-1.0) H 12/14/17 17:22 Ur Leukocyte Esterase Trace Aleksandar/uL (Negative) 12/14/17 17:22 Urine WBC (Auto) < 1 /hpf (0-5) 12/14/17 17:22 Urine RBC (Auto) 2 /hpf (0-3) 12/14/17 17:22 Ur Squamous Epith Cells 1 /hpf (0-5) 12/14/17 17:22 Urine HCG, Qual Negative (NEGATIVE) 12/15/17 10:11 IgG 618.7 mg/dL (700.0-1600.0) L 12/16/17 06:10 Anti-Mitochondrial Ab Negative (Negative) 12/16/17 06:10 Hepatitis A IgM Ab Negative (NEGATIVE) 12/15/17 06:25 Hep Bs Antigen Negative (NEGATIVE) 12/15/17 06:25 Hep B Core IgM Ab Negative (NEGATIVE) 12/15/17 06:25 Hepatitis C Antibody Reactive (NEGATIVE) 12/15/17 06:25 HIV 1&2 Antibody Screen Negative (NEGATIVE) 12/15/17 13:36 Influenza Typ A,B (EIA) Negative for flu a/b (NEGATIVE) 12/14/17 18:00 - Hospital Course Hospital Course: On admission: HPI: Patient is 52 year old menopausal female with history of opioid abuse, who presents to the ED via ambulance with complaint of fever and chills. Patient states that she felt sudden fever and chills after while painting her deck and sitting under the hair dry. Patient states that she was placed on Cipro BID on November 29 for UTI after she was placed on an unknown antibiotics on November 19, which provided no relief. Prior to being placed on the Cipro, patient had symptoms of dysuria and increased urinary frequency for 2 days without associated symptoms of fever and chills. Currently, patient denies any symptoms of dysuria, urinary frequency, flank pain, abdominal/pelvic pain, hematuria, headache, chest pain, palpitations, SOB, cough, running nose. Hospital Course: Patient seen and admitted to hospitalist service. At the time, patient meeting SIRS criteria. Blood cultures and urine cultures obtained which were negative . CXR obtained with prominent lung markings at the mid and lower lung. Patient started on empiric antibiotics. Recommendations to correlate clinically for bronchitis. Pulm consulted who deemed patient medically stable. Patient with elevated LFTs and bilirubin. GI consulted with recommendations to determine etiology of transaminitis. Patient did have positive HCV antibody. Immune testing and HCV viral load ordered. Recommendations for outpatient workup. Electrolyte abnormality noted. Repleted as indicated. Patient with history of opiate abuse however follows with methadone clinic. Therapy continued. GI Imaging results as noted: [id number] intrahepatic biliary ductal dilatation and mildly dilated CBD. The possibility of choledocholithiasis is not totally excluded. If clinically warranted further assessment by MRCP is suggested. Distended gallbladder demonstrate diffuse wall thickening. Trace pericholecystic fluid is also noted. Correlate clinically for cholecystitis. - Abdominal u/s- positive Mccall sign IMPRESSION: Cholelithiasis, biliary sludge, gallbladder wall thickening, and small amount of pericholecystic fluid. Findings are suspicious for acute cholecystitis. CBD dilatation and mild intrahepatic biliary ductal dilatation. Pancreatic ductal dilatation. - HIDA IMPRESSION: Heterogeneous tracer uptake in the liver more prominent on the left liver lobe. Mild left liver lobe intrahepatic biliary ductal dilatation. Visualization of the gallbladder. No scintigraphic evidence of acute cholecystitis. Surgery consulted for recommendations for elective gallbladder removal. Patient denied clinical symptoms. Patient was to go to surgery on December 17, 2017 however procedure was canceled for unknown reasons. Later surgery was re- scheduled for afternoon however patient was not willing to go to surgery. Patient requested a second evaluation with outpatient follow up. Recommendations for outpatient GI follow up as well. Patient to continue with antibiotic therapy ( Augmentin) at home. This is a brief summary of events. For a complete course, refer to the medical record. Discharge Exam - Head Exam Head Exam: ATRAUMATIC, NORMAL INSPECTION, NORMOCEPHALIC - Eye Exam Eye Exam: EOMI, Normal appearance, PERRL Pupil Exam: NORMAL ACCOMODATION - ENT Exam ENT Exam: Mucous Membranes Moist - Neck Exam Neck exam: Full Rom - Respiratory Exam Respiratory Exam: NORMAL BREATHING PATTERN - GI/Abdominal Exam GI & Abdominal Exam: Normal Bowel Sounds, Soft. absent: Guarding, Rigid, Tenderness - Extremities Exam Extremities exam: full ROM - Back Exam Back exam: FULL ROM - Neurological Exam Neurological exam: Alert, Oriented x3 - Psychiatric Exam Psychiatric exam: Normal Affect, Normal Mood - Skin Skin Exam: Intact, Normal Color Discharge Plan - Discharge Medications Prescriptions: Amoxicillin/Clavulanate [Augmentin 875 MG-125 MG] 1 tab PO BID #8 tab - Follow Up Plan Condition: GOOD Disposition: HOME/ ROUTINE Instructions: Hypokalemia (DC), Low Magnesium Level (DC), Fever in Adults (GEN) , Leukocytosis (DC) Additional Instructions: Patient is stable for discharge home as per Dr. Mittal. Patient is to follow- up with her PCP Dr. Jacob in [place], GI Dr. Hollis, and general surgeon Dr. Munir Magaña within 1 week of discharge. Patient is being discharged with prescription for Augmentin. Patient should take this by mouth twice a day for the next 4 days. Patient is also advised to take a probiotic yogurt once day for the next 4 days as well. Patient is to return to the ED if symptoms recur or are worsening. This was explained to the patient who understands and agrees. Referrals: Maximo Hollis MD [Staff Provider] - Munir Magaña MD [Staff Provider] -
== END 2017-12-17 13:49 | disposition home or self-care (01) ==
LOC: C.ER 16:47 → C.3T 18:55
PROVIDERS: ADMIT Internal Medicine; ATTEND Internal Medicine
DX: K81.0 Acute cholecystitis (principal); J44.0 Chronic obstructive pulmonary disease with (acute) lower respiratory infection; E83.42 Hypomagnesemia; Z87.891 Personal history of nicotine dependence; N39.0 Urinary tract infection, site not specified; E80.6 Other disorders of bilirubin metabolism
CPT/HCPCS: 36415; 71045; 71260; 74177; 76700; 78227; 80053; 80074; 81001; 82103; 82390; 82728; 82784; 82803; 83516; 83540; 83735; 83789; 84100; 84466; 84703; 85025; 85610; 85730; 86038; 86255; 86376; 86703; 87040; 87086; 87521; 87804; 93005; 96360; 96365; 99285; A9537; G0378; J2543; J3370; J3475; J7030; Q9966; Q9967